=== PATIENT | female | born 1945 | race Caucasian/White ===

== ENCOUNTER → 2019-08-25 | Outpatient (CLI) | payer MEDICARE ==
--- NOTE | 2019-08-29 08:53 | MM ---
Reason for exam: screening (asymptomatic). Last mammogram was performed 9 years and 9 months ago. History: Patient is postmenopausal. Family history of breast cancer in mother. Took hormonal contraceptives for 10 years. Took estrogen for 1 year. Physical Findings: A clinical breast exam by your physician is recommended on an annual basis and results should be correlated with mammographic findings. MG 3D Screening Mammo W/Cad Bilateral CC and MLO view(s) were taken. No prior studies available for comparison. There are scattered fibroglandular densities. There are benign appearing vascular calcifications bilaterally. There is no discrete abnormality. No significant changes when compared with prior studies. ASSESSMENT: Benign, BI-RAD 2 RECOMMENDATION: Routine screening mammogram of both breasts in 1 year.
== END | disposition home or self-care (01) ==
LOC: RADMAMWWP 13:50
PROVIDERS: ATTEND Internal Medicine
DX: Z12.31 Encounter for screening mammogram for malignant neoplasm of breast (principal)
CPT/HCPCS: 77063; 77067

== ENCOUNTER → 2019-08-30 | Outpatient (CLI) | payer MEDICARE ==
--- NOTE | 2019-08-30 14:23 | BD ---
EXAMINATION TYPE: Axial Bone Density DATE OF EXAM: 08/30/2019 COMPARISON: Postmenopausal female. Disorder of bone. Vitamin D deficiency. CLINICAL HISTORY: Height: 63.5 Weight: 244 FRAX RISK QUESTIONS: Alcohol (3 or more units per day): no Family History (Parent hip fracture): no Glucocorticoids (More than 3mos): only for emergency situation & has not used for well over 1 year (Ex: prednisone, prednisolone, methylprednisolone, dexamethasone, and hydrocortisone). History of Fracture in Adulthood: no Secondary Osteoporosis: 1. Type 1 Diabetes: no 2. Hyperthyroidism: no 3. Menopause before 45: no 4. Malnutrition: no 5. Chronic liver disease: no Rheumatoid Arthritis: no Current Tobacco Use: no RISK FACTORS HISTORY OF: Family History of Osteoporosis: not to knowledge of patient Active: somewhat Diet low in dairy products/other sources of calcium: at least one serving a day Postmenopausal woman: yes Take estrogen and/or progesterone medications: not now How long: hormonal contraceptives about 10 years, estrogen about 1 year Lost more than 2 inches in height since high school: yes Frequent falls: no Poor Health: generally good health but sometimes fair health Hyperparathyroidism: no Adrenal Insufficiency: no MEDICATIONS: Prednisone or other steroids: no Thyroid Medications: not now Which medication: unsure How Long: a couple years Osteoporosis Medications: no Additional Medications: metformin Additional History: in 2002 forearm only done on old bone density unit EXAM MEASUREMENTS: Bone mineral densitometry was performed using the [employer] System. Bone mineral density as measured about the Lumbar spine is: ----- L1-L4(G/cm2): 1.583 T Score Values are as follows: ----- L2: 3.7 ----- L3: 5.7 ----- L4: 3.6 ----- L1-L4: 3.4 Bone mineral density not previously done on lumbar spine Bone mineral density about the R hip (g/cm2): 0.808 Bone mineral density about the L hip (g/cm2): 0.728 T Score values are as follows: -----R Neck: -1.7 -----L Neck: -2.2 -----R Total: -1.8 -----L Total: -1.6 Bone mineral density not previously done on hips Bone mineral density about the L Wrist (g/cm2): 0.667 T Score values are as follows: -----Dist. R+U: -0.3 -----Prox. R+U: -0.3 -----Radius total: -0.3 Bone mineral density has: Decreased -16.3% since study of: 09/15/2002 IMPRESSION: Osteopenia (T Score between -2.5 and -1) in both hips. Bone density likely falsely elevated lumbar sp ine due to reactive sclerosis. There is slightly increased risk of fracture and the patient may be considered for treatment. Re-Screen 2-5 years. NOTE: T-SCORE=SD OF THE YOUNG ADULT MEAN.
== END | disposition home or self-care (01) ==
LOC: RADBDWWP 11:10
PROVIDERS: ATTEND Internal Medicine
DX: M85.80 Other specified disorders of bone density and structure, unspecified site (principal); E55.9 Vitamin D deficiency, unspecified
CPT/HCPCS: 77080

== ENCOUNTER 2019-12-08 10:56 | Inpatient (IN) | payer MEDICARE ==
[2019-12-08] MEDS ORDERED: SODIUM CHLORIDE 0.9% 500 ML 500 ML IV STA ×2 (11:24→12:33)
[2019-12-08] MEDS ORDERED: PANTOPRAZOLE 40 MG/10 ML VIAL IVP STA (11:24)
[2019-12-08] MEDS ORDERED: HYDROmorphone 0.5 MG/0.5 ML SYRINGE IVP STA (11:24)
[2019-12-08 12:00] LABS: Basophils % (A) 0 %; Eosinophils # (A) 0.1 k/uL (0-0.7); Eosinophils % (A) 1 %; HCT 48.6 % (34.0-46.0); HGB 15.7 gm/dL (11.4-16.0); Lymphocytes # (A) 0.7 k/uL (1.0-4.8); Lymphocytes % (A) 7 %; MCH 31.2 pg (25.0-35.0); MCHC 32.3 g/dL (31.0-37.0); MCV 96.6 fL (80.0-100.0); Mean Platelet Volume 7.9; Monocytes # (A) 0.5 k/uL (0-1.0); Monocytes % (A) 6 %; Neutrophils # (A) 7.9 k/uL (1.3-7.7); Neutrophils % (A) 85 %; Platelet Count 308 k/uL (150-450); RBC 5.03 m/uL (3.80-5.40); RDW 12.8 % (11.5-15.5); WBC 9.2 k/uL (3.8-10.6)
--- NOTE | 2019-12-08 12:09 | ED ---
General Adult HPI - General Chief complaint: GI Bleed Stated complaint: Abd pain, poss GI bleed, dehydration Time Seen by Provider: 12/08/19 11:04 Source: patient, RN notes reviewed Mode of arrival: ambulatory Limitations: no limitations - History of Present Illness Initial comments: 74-year-old female with a past medical history of atrial fibrillation, NIDDM, DVT, PE, currently on Eliquis presents to the emergency department for a chief complaint of abdominal pain. Patient states she has had left lower quadrant abdominal pain for about a week. Patient states that she has also had loose stools that are dark black. Patient currently taking blood thinners. Patient has a history of GI bleed but they were unable to determine why this was the antonio e. She did have some upper abdominal pain a few nights ago but denies any chest pain associated with this. Patient has had some associated nausea vomiting so has not taken her medications as normal over the past few days.Patient has no other complaints at this time including shortness of breath, chest pain, headache, or visual changes. - Related Data Home Medications Medication Instructions Recorded Confirmed Spironolactone [Aldactone] 100 mg PO BID 12/20/13 12/08/19 Apixaban [Eliquis] 5 mg PO BID 05/08/15 12/08/19 Flecainide Acetate 50 mg PO BID 12/08/19 12/08/19 Verapamil HCl [Verapamil ER] 120 mg PO DAILY 12/08/19 12/08/19 amLODIPine [Norvasc] 5 mg PO DAILY 12/08/19 12/08/19 metFORMIN HCL ER [Glucophage Xr] 500 mg PO DAILY 12/08/19 12/08/19 Allergies Allergy/AdvReac Type Severity Reaction Status Date / Time adhesive Allergy Intermediate Rash/Hives Verified 12/08/19 12:15 cefuroxime axetil Allergy Intermediate Unknown Verified 12/08/19 12:15 [From Ceftin] Sulfa (Sulfonamide Allergy Intermediate Unknown Verified 12/08/19 12:15 Antibiotics) levofloxacin [From Levaquin] AdvReac Severe Rapid Verified 12/08/19 12:15 Heart Rate, dizziness,difficulty walking sulfamethoxazole AdvReac Severe Rapid Verified 12/08/19 12:15 [From Bactrim] Heart Rate trimethoprim [From Bactrim] AdvReac Severe Rapid Verified 12/08/19 12:15 Heart Rate molds AdvReac Unknown Runny nose Uncoded 12/08/19 11:02 & eyes, looses voice Review of Systems ROS Statement: Those systems with pertinent positive or pertinent negative responses have been documented in the HPI. ROS Other: All systems not noted in ROS Statement are negative. Past Medical History Past Medical History: Atrial Fibrillation, Diabetes Mellitus, Deep Vein Thrombosis (DVT), Musculoskeletal Disorder, Osteoarthritis (OA), Pulmonary Embolus (PE), Skin Disorder, Vascular Disorder Additional Past Medical History / Comment(s): PE X2, SWELLING IN LEGS, WOUNDS RIVERA LEGS, DDD WITH BACK PAIN, LOW THYROID A TEENAGER,HX OF KIDNEY STONES. See DR Fonseca H & P History of Any Multi-Drug Resistant Organisms: None Reported Past Surgical History: Hernia Repair, Hysterectomy, Tonsillectomy Additional Past Surgical History / Comment(s): PARTIAL HYSTERECTOMY, RIVERA OOPHERECTOMY.CARDIOVERSION 05-10-15. AND 07-10-15 Past Anesthesia/Blood Transfusion Reactions: No Reported Reaction Past Psychological History: No Psychological Hx Reported Smoking Status: Never smoker Past Alcohol Use History: Rare Past Drug Use History: None Reported - Past Family History Mother Family Medical History: Cancer, Dementia Additional Family Medical History / Comment(s): BREAST & UTERINE CA, of blood clot during sugery at age 89yrs. Father Family Medical History: Myocardial Infarction ([place]) Additional Family Medical History / Comment(s): Father of [place] at age 64 yrs. General Exam Limitations: no limitations General appearance: alert, in no apparent distress Head exam: Present: atraumatic, normocephalic, normal inspection Eye exam: Present: normal appearance, PERRL, EOMI. Absent: scleral icterus, conjunctival injection, periorbital swelling ENT exam: Present: normal exam, mucous membranes moist Neck exam: Present: normal inspection, full ROM. Absent: tenderness, meningismus, lymphadenopathy Respiratory exam: Present: normal lung sounds bilaterally. Absent: respiratory distress, wheezes, rales, rhonchi, stridor Cardiovascular Exam: Present: regular rate, normal rhythm, normal heart sounds. Absent: systolic murmur, diastolic murmur, rubs, gallop, clicks GI/Abdominal exam: Present: soft, tenderness (Patient has tenderness noted to the left lower quadrant. No upper abdominal tenderness. No right lower quadrant tenderness. No guarding or rebound on exam.), normal bowel sounds. Absent: distended, guarding, rebound, rigid Rectal exam: Present: normal rectal tone, hemorrhoids (external) Neurological exam: Present: alert Psychiatric exam: Present: normal affect, normal mood Course Vital Signs 12/08/19 12/08/19 10:57 13:00 Temperature 97.9 F Pulse Rate 103 H 86 Respiratory 18 18 Rate Blood Pressure 103/71 119/70 O2 Sat by Pulse 93 L 98 Oximetry EKG Findings - EKG Comments: EKG Findings:: Sinus tachycardia, ventricular rate 108, MI interval 144, QTC 485 Medical Decision Making - Medical Decision Making Vitals are stable. Patient does have some left lower quadrant tenderness. CBC CMP unremarkable. Urinalysis does show 2+ ketones, likely dehydration patient given a liter of fluids. No significant evidence of infection. Occult blood is negative. CT abdomen and pelvis with contrast shows developing mid to distal acute small bowel obstruction likely from adhesions centered in the anterior left lower quadrant/upper pelvis. She does have a strong history of hysterectomy with bilateral oophorectomy. Patient will be admitted to [facility] with consult to Dr Oconnell who is on-call for surgery. Family does prefer Dr Oconnell. NG tube was placed. It was advanced given chest x-ray. - Lab Data Result diagrams: 12/08/19 11:40 12/08/19 11:40 Lab Results 12/08/19 12/08/19 12/08/19 Range/Units 11:40 11:40 11:40 WBC 9.2 (3.8-10.6) k/uL RBC 5.03 (3.80-5.40) m/uL Hgb 15.7 (11.4-16.0) gm/dL Hct 48.6 H (34.0-46.0) % MCV 96.6 (80.0-100.0) fL MCH 31.2 (25.0-35.0) pg MCHC 32.3 (31.0-37.0) g/dL RDW 12.8 (11.5-15.5) % Plt Count 308 (150-450) k/uL Neutrophils % 85 % Lymphocytes % 7 % Monocytes % 6 % Eosinophils % 1 % Basophils % 0 % Neutrophils # 7.9 H (1.3-7.7) k/uL Lymphocytes # 0.7 L (1.0-4.8) k/uL Monocytes # 0.5 (0-1.0) k/uL Eosinophils # 0.1 (0-0.7) k/uL Basophils # 0.0 (0-0.2) k/uL PT (9.0-12.0) sec INR (<1.2) APTT (22.0-30.0) sec Sodium 136 L (137-145) mmol/L Potassium 4.4 (3.5-5.1) mmol/L Chloride 104 (98-107) mmol/L Carbon Dioxide 19 L (22-30) mmol/L Anion Gap 13 mmol/L BUN 17 (7-17) mg/dL Creatinine 1.14 H (0.52-1.04) mg/dL Est GFR (CKD-EPI)AfAm 55 (>60 ml/min/1.73 sqM) Est GFR (CKD-EPI)NonAf 48 (>60 ml/min/1.73 sqM) Glucose 101 H (74-99) mg/dL Plasma Lactic Acid [place] 1.2 (0.7-2.0) mmol/L Calcium 9.2 (8.4-10.2) mg/dL Magnesium 1.6 (1.6-2.3) mg/dL Total Bilirubin 0.7 (0.2-1.3) mg/dL AST 17 (14-36) U/L ALT 10 (4-34) U/L Alkaline Phosphatase 51 (38-126) U/L Total Protein 6.5 (6.3-8.2) g/dL Albumin 3.3 L (3.5-5.0) g/dL Urine Color Urine Appearance (Clear) Urine pH (5.0-8.0) Ur Specific [place] (1.001-1.035) Urine Protein (Negative) Urine Glucose (UA) (Negative) Urine Ketones (Negative) Urine Blood (Negative) Urine Nitrite (Negative) Urine Bilirubin (Negative) Urine Urobilinogen (<2.0) mg/dL Ur Leukocyte Esterase (Negative) Urine WBC (0-5) /hpf Ur Squamous Epith Cells (0-4) /hpf Urine Bacteria (None) /hpf Hyaline Casts (0-2) /lpf Urine Mucus (None) /hpf Stool Occult Blood (Negative) Coronavirus (PCR) (Not Detectd) Blood Type Blood Type Recheck Bld Type Recheck Status Antibody Screen Spec Expiration Date 12/08/19 12/08/19 12/08/19 Range/Units 11:40 12:09 12:09 WBC (3.8-10.6) k/uL RBC (3.80-5.40) m/uL Hgb (11.4-16.0) gm/dL Hct (34.0-46.0) % MCV (80.0-100.0) fL MCH (25.0-35.0) pg MCHC (31.0-37.0) g/dL RDW (11.5-15.5) % Plt Count (150-450) k/uL Neutrophils % % Lymphocytes % % Monocytes % % Eosinophils % % Basophils % % Neutrophils # (1.3-7.7) k/uL Lymphocytes # (1.0-4.8) k/uL Monocytes # (0-1.0) k/uL Eosinophils # (0-0.7) k/uL Basophils # (0-0.2) k/uL PT 11.2 (9.0-12.0) sec INR 1.1 (<1.2) APTT 25.0 (22.0-30.0) sec Sodium (137-145) mmol/L Potassium (3.5-5.1) mmol/L Chloride (98-107) mmol/L Carbon Dioxide (22-30) mmol/L Anion Gap mmol/L BUN (7-17) mg/dL Creatinine (0.52-1.04) mg/dL Est GFR (CKD-EPI)AfAm (>60 ml/min/1.73 sqM) Est GFR (CKD-EPI)NonAf (>60 ml/min/1.73 sqM) Glucose (74-99) mg/dL Plasma Lactic Acid [place] (0.7-2.0) mmol/L Calcium (8.4-10.2) mg/dL Magnesium (1.6-2.3) mg/dL Total Bilirubin (0.2-1.3) mg/dL AST (14-36) U/L ALT (4-34) U/L Alkaline Phosphatase (38-126) U/L Total Protein (6.3-8.2) g/dL Albumin (3.5-5.0) g/dL Urine Color Urine Appearance (Clear) Urine pH (5.0-8.0) Ur Specific [place] (1.001-1.035) Urine Protein (Negative) Urine Glucose (UA) (Negative) Urine Ketones (Negative) Urine Blood (Negative) Urine Nitrite (Negative) Urine Bilirubin (Negative) Urine Urobilinogen (<2.0) mg/dL Ur Leukocyte Esterase (Negative) Urine WBC (0-5) /hpf Ur Squamous Epith Cells (0-4) /hpf Urine Bacteria (None) /hpf Hyaline Casts (0-2) /lpf Urine Mucus (None) /hpf Stool Occult Blood Negative (Negative) Coronavirus (PCR) (Not Detectd) Blood Type A Positive Blood Type Recheck A Pos Bld Type Recheck Status No Antibody Screen NEGATIVE Spec Expiration Date 12/11/2019 - 233912/08/19 12/08/19 Range/Units 13:00 13:15 WBC (3.8-10.6) k/uL RBC (3.80-5.40) m/uL Hgb (11.4-16.0) gm/dL Hct (34.0-46.0) % MCV (80.0-100.0) fL MCH (25.0-35.0) pg MCHC (31.0-37.0) g/dL RDW (11.5-15.5) % Plt Count (150-450) k/uL Neutrophils % % Lymphocytes % % Monocytes % % Eosinophils % % Basophils % % Neutrophils # (1.3-7.7) k/uL Lymphocytes # (1.0-4.8) k/uL Monocytes # (0-1.0) k/uL Eosinophils # (0-0.7) k/uL Basophils # (0-0.2) k/uL PT (9.0-12.0) sec INR (<1.2) APTT (22.0-30.0) sec Sodium (137-145) mmol/L Potassium (3.5-5.1) mmol/L Chloride (98-107) mmol/L Carbon Dioxide (22-30) mmol/L Anion Gap mmol/L BUN (7-17) mg/dL Creatinine (0.52-1.04) mg/dL Est GFR (CKD-EPI)AfAm (>60 ml/min/1.73 sqM) Est GFR (CKD-EPI)NonAf (>60 ml/min/1.73 sqM) Glucose (74-99) mg/dL Plasma Lactic Acid [place] (0.7-2.0) mmol/L Calcium (8.4-10.2) mg/dL Magnesium (1.6-2.3) mg/dL Total Bilirubin (0.2-1.3) mg/dL AST (14-36) U/L ALT (4-34) U/L Alkaline Phosphatase (38-126) U/L Total Protein (6.3-8.2) g/dL Albumin (3.5-5.0) g/dL Urine Color Yellow Urine Appearance Clear (Clear) Urine pH 5.5 (5.0-8.0) Ur Specific [place] 1.038 H (1.001-1.035) Urine Protein Trace H (Negative) Urine Glucose (UA) Negative (Negative) Urine Ketones 2+ H (Negative) Urine Blood Negative (Negative) Urine Nitrite Negative (Negative) Urine Bilirubin 1+ H (Negative) Urine Urobilinogen 3.0 (<2.0) mg/dL Ur Leukocyte Esterase Large H (Negative) Urine WBC 5 (0-5) /hpf Ur Squamous Epith Cells <1 (0-4) /hpf Urine Bacteria Rare H (None) /hpf Hyaline Casts 9 H (0-2) /lpf Urine Mucus Occasional H (None) /hpf Stool Occult Blood (Negative) Coronavirus (PCR) Not Detected (Not Detectd) Blood Type Blood Type Recheck Bld Type Recheck Status Antibody Screen Spec Expiration Date Disposition Clinical Impression: SBO (small bowel obstruction) Disposition: ADMITTED IP TO THIS [facility] Condition: Fair Is patient prescribed a controlled substance at d/c from ED?: No Time of Disposition: 13:34
[2019-12-08 12:15] LABS: Albumin 3.3 g/dL (3.5-5.0); Calcium 9.2 mg/dL (8.4-10.2); Magnesium 1.6 mg/dL (1.6-2.3); Potassium 4.4 mmol/L (3.5-5.1); Total Bilirubin 0.7 mg/dL (0.2-1.3); Total Protein 6.5 g/dL (6.3-8.2)
[2019-12-08 12:21] LABS: INR 1.1 (<1.2); Prothrombin Time 11.2 sec (9.0-12.0)
--- NOTE | 2019-12-08 13:02 | CT ---
EXAMINATION TYPE: CT abdomen pelvis w con DATE OF EXAM: 12/08/2019 HISTORY: LLQ pain, rectal bleed CT DLP: 1700.3mGycm Automated Exposure Control for Dose Reduction was Utilized. CONTRAST: CT scan of the abdomen and pelvis is performed without oral but with IV Contrast, patient injected wi th 80 mL of Isovue 300. COMPARISON: CT abdomen and pelvis December 24, 2015 and older CTs FINDINGS: LUNG BASES: Tiny pericardial effusion on current study. Mild cardiomegaly. LIVER/GB: No significant abnormality is appreciated. PANCREAS: No significant abnormality is seen. SPLEEN: No significant abnormality is seen. ADRENALS: No significant abnormality is seen. KIDNEYS: Some cortical thinning in both kidneys. Symmetric cortical medullary uptake and excretion wi thout hydronephrosis seen bilaterally. Small simple appearing thin-walled cysts scattered throughout the central portion left kidney. BOWEL: Suboptimal evaluation of bowel without enteric contrast. No suspicious dilatation of stomach o r duodenal sweep. Some prominent fluid filled small bowel loops in the left mid abdomen and central p abelardo with air-fluid levels measuring up to 4.3 cm in diameter coronal image 48. Scattered diverticul a throughout nondistended colon. Nondistended terminal ileum coronal image 48. Nondistended distal il eal loops in the right abdomen. Mild/moderate mesenteric edema. Suspect surgical adhesion left lower quadrant anteriorly near axial image 57. There is loss of fat plane with areas of prominent and nondi lated bowel loops. UTERUS/ADNEXA: Uterus is surgically absent or markedly atrophic. LYMPH NODES: No greater than 1cm abdominal or pelvic lymph nodes are appreciated. OSSEOUS STRUCTURES: Dextroconvex scoliosis centered upper lumbar spine. Moderate to severe multilevel spurring and disc space narrowing in the visualized thoracic and upper lumbar spine. Moderate narrow ing in both hip joints right greater than left with additional moderate right-sided spurring. OTHER: Persistent surgical changes anterior abdominal wall with thin-walled fluid collection centered left lower quadrant fairly unchanged in size from 2014 CT with surrounding coils presumed postsurgic al seroma measuring roughly 12 x 7 cm axial image 56. IMPRESSION: There is developing mid to distal acute small bowel obstruction likely from adhesions will tered in the anterior left lower quadrant/upper pelvis.
[2019-12-08 13:14] LABS: Appearance,Urine Clear (Clear); Bacteria,Urine Rare /hpf; Bilirubin,Urine 1+ (Negative); Blood,Urine Negative (Negative); Color,Urine Yellow; Glucose,Urine (UA) Negative (Negative); Hyaline Casts,Urine 9 /lpf (0-2); Ketones,Urine 2+ (Negative); Leukocyte Esterase,Urine Large (Negative); Mucus,Urine Occasional /hpf; Nitrite,Urine Negative (Negative); PH, Urine 5.5 (5.0-8.0); Protein,Urine Trace (Negative); Specific Gravity,Urine 1.038 (1.001-1.035); Squamous Epithelial Cell,Urine <1 /hpf (0-4); WBC,Urine 5 /hpf (0-5)
[2019-12-08] MEDS ORDERED: ONDANSETRON 4 MG/2 ML VIAL IVP PRN (13:27)
[2019-12-08] MEDS ORDERED: HYDROmorphone 0.5 MG/0.5 ML SYRINGE IVP PRN (13:27)
[2019-12-08] MEDS ORDERED: NALOXONE 0.4 MG/ML 1 ML VIAL IV PRN ×2 (13:27→14:41)
--- NOTE | 2019-12-08 14:33 | XR ---
EXAMINATION TYPE: XR chest 1V confirm line [facility] DATE OF EXAM: 12/08/2019 CLINICAL HISTORY: NG tube placement. TECHNIQUE: Single AP portable upright view of the chest is obtained. COMPARISON: Chest x-ray from February 12, 2011 FINDINGS: New nasogastric tube, tip cannot be confirmed below diaphragm. Lungs grossly clear on curr ent study. Cardiac silhouette size is upper limits of normal. Degenerative change bilateral glenohume ral joints. IMPRESSION: New nasogastric tube is felt terminating just above diaphragm. Advise advancing.
[2019-12-08] MEDS ORDERED: MORPHINE SULFATE 4 MG/ML SYRINGE IV PRN (14:41)
[2019-12-08] MEDS ORDERED: METOPROLOL TARTRATE 5 MG/5 ML VIAL IVP PRN (14:43)
--- NOTE | 2019-12-08 14:55 | P.HPIM ---
History of Present Illness H&P Date: 12/08/19 Chief Complaint: Abdominal pain 74-year-old female with a past medical history of atrial fibrillation on anticoagulation therapy, NIDDM, DVT, PE, currently on Eliquis presents to the emergency department for a chief complaint of abdominal pain. Pain is located in the left lower quadrant, started on Thursday. It is associated with diarrhea, nausea and vomiting. No hematemesis or hematochezia. Patient states that she had a fever that lasted for about 5 hours. No shortness of breath, chest pain, no urinary symptoms. Evaluation in the emergency department revealed tachycardia with heart rate in the 110s. Labs showed low bicarb of 19, otherwise negative. Blood pressure was stable. Computed tomography scan of the abdomen showed mid to distal small bowel obstruction likely secondary to adhesions. Review of Systems Complete review of system performed, pertinent positives per HPI, otherwise negative. Past Medical History Past Medical History: Atrial Fibrillation, Diabetes Mellitus, Deep Vein Thr ombosis (DVT), Musculoskeletal Disorder, Osteoarthritis (OA), Pulmonary Embolus (PE), Skin Disorder, Vascular Disorder Additional Past Medical History / Comment(s): PE X2, SWELLING IN LEGS, WOUNDS RIVERA LEGS, DDD WITH BACK PAIN, LOW THYROID A TEENAGER,HX OF KIDNEY STONES. See DR Fonseca H & P History of Any Multi-Drug Resistant Organisms: None Reported Past Surgical History: Hernia Repair, Hysterectomy, Tonsillectomy Additional Past Surgical History / Comment(s): PARTIAL HYSTERECTOMY, RIVERA O OPHERECTOMY.CARDIOVERSION 05-10-15. AND 07-10-15 Past Anesthesia/Blood Transfusion Reactions: No Reported Reaction Past Psychological History: No Psychological Hx Reported Smoking Status: Never smoker Past Alcohol Use History: Rare Past Drug Use History: None Reported - Past Family History Mother Family Medical History: Cancer, Dementia Additional Family Medical History / Comment(s): BREAST & UTERINE CA, of blood clot during sugery at age 89yrs. Father Family Medical History: Myocardial Infarction ([place]) Additional Family Medical History / Comment(s): Father of [place] at age 64 yrs. Medications and Allergies Home Medications Medication Instructions Recorded Confirmed Type Spironolactone [Aldactone] 100 mg PO BID 12/20/13 12/08/19 History Apixaban [Eliquis] 5 mg PO BID 05/08/15 12/08/19 History Flecainide Acetate 50 mg PO BID 12/08/19 12/08/19 History Verapamil HCl [Verapamil ER] 120 mg PO DAILY 12/08/19 12/08/19 History amLODIPine [Norvasc] 5 mg PO DAILY 12/08/19 12/08/19 History metFORMIN HCL ER [Glucophage Xr] 500 mg PO DAILY 12/08/19 12/08/19 History Allergies Allergy/AdvReac Type Severity Reaction Status Date / Time adhesive Allergy Intermediate Rash/Hives Verified 12/08/19 12:15 cefuroxime axetil Allergy Intermediate Unknown Verified 12/08/19 12:15 [From Ceftin] Sulfa (Sulfonamide Allergy Intermediate Unknown Verified 12/08/19 12:15 Antibiotics) levofloxacin [From Levaquin] AdvReac Severe Rapid Verified 12/08/19 12:15 Heart Rate, dizziness,difficulty walking sulfamethoxazole AdvReac Severe Rapid Verified 12/08/19 12:15 [From Bactrim] Heart Rate trimethoprim [From Bactrim] AdvReac Severe Rapid Verified 12/08/19 12:15 Heart Rate molds AdvReac Unknown Runny nose Uncoded 12/08/19 11:02 & eyes, looses voice Physical Exam Vitals: Vital Signs Temp Pulse Resp BP Pulse Ox 12/08/19 13:00 86 18 119/70 98 12/08/19 10:57 97.9 F 103 H 18 103/71 93 L Intake and Output 12/07/19 12/08/19 12/08/19 22:59 06:59 14:59 Other: Weight 90.718 kg Constitutional: No acute distress, conversant, pleasant Eyes:Anicteric sclerae, moist conjunctiva, no lid-lag, PERRLA, ENMT: Oropharynx clear, no erythema, exudates Neck: Supple, FROM, no masses, or JVD, No carotid bruits, No thyromegaly Lungs: Clear to auscultation, Clear to percussion, Normal respiratory effort, no accessory muscle use Cardiovascular: Tachycardic, regular, No murmurs, gallops, or rubs, No peripheral edema Abdominal: Soft, left lower quadrant tenderness, no guarding, rebound or rigidity, Normoactive bowel sounds, No hepatomegaly, No splenomegaly, No palpable mass Skin: Chronic skin changes in the lower extremities. Otherwise no rash, lesions, No ulcers Extremities: No digital cyanosis, No clubbing, Pedal pulses intact and symmetrical, Radial pulses intact and symmetrical, No calf tenderness Psychiatric: Alert and oriented to person, place and time, appropriate affect, intact judgement Neuro: Muscles Strength 5/5 in all 4 extremities, Sensation to light touch grossly present throughout, Cranial nerves II-XII grossly intact, no focal sensory deficits Results CBC & Chem 7: 12/08/19 11:40 12/08/19 11:40 Labs: Abnormal Lab Results - Last 24 Hours (Table) 12/08/19 12/08/19 12/08/19 Range/Units 11:40 11:40 13:00 Hct 48.6 H (34.0-46.0) % Neutrophils # 7.9 H (1.3-7.7) k/uL Lymphocytes # 0.7 L (1.0-4.8) k/uL Sodium 136 L (137-145) mmol/L Carbon Dioxide 19 L (22-30) mmol/L Creatinine 1.14 H (0.52-1.04) mg/dL Glucose 101 H (74-99) mg/dL Albumin 3.3 L (3.5-5.0) g/dL Ur Specific [place] 1.038 H (1.001-1.035) Urine Protein Trace H (Negative) Urine Ketones 2+ H (Negative) Urine Bilirubin 1+ H (Negative) Ur Leukocyte Esterase Large H (Negative) Urine Bacteria Rare H (None) /hpf Hyaline Casts 9 H (0-2) /lpf Urine Mucus Occasional H (None) /hpf Assessment and Plan Plan: Acute small bowel obstruction Consult surgery IV fluids NG tube placed Nothing by mouth Hold by mouth meds Atrial fibrillation with RVR Metoprolol IV when necessary Need to hold anticoagulation at this point, there was some blood coming out of the NG tube likely related to trauma If this stabilizes tomorrow consider starting patient on heparin Type 2 diabetes Hold metformin Sliding scale insulin Deep Vein Thrombosis (DVT) and PE history Restart heparin tomorrow as above Patient will be admitted to the hospital, more than two midnights, as inpatient.
[2019-12-08] MEDS: SODIUM CHLORIDE 0.9% 1,000 ML IV SCH (15:24)
[2019-12-08] MEDS: INSULIN ASPART (NovoLOG) 100 UNIT/ML VIAL SQ SCH ×2 (17:13→21:34)
[2019-12-08] MEDS ORDERED: BENZOCAINE SPRAY 1 CAN MUCOUS MEM PRN (17:45)
[2019-12-09] MEDS: SODIUM CHLORIDE 0.9% 1,000 ML IV SCH ×2 (03:30→20:51)
[2019-12-09] MEDS ORDERED: FLECAINIDE 50 MG TAB PO STA (05:13)
[2019-12-09] MEDS ORDERED: FLECAINIDE 50 MG TAB PO ONE (05:30)
[2019-12-09 07:53] LABS: Glucose,Whole Blood 75 mg/dL (75-99)
[2019-12-09 07:53] LABS: Glucose,Whole Blood 73 mg/dL (75-99)
[2019-12-09 07:54] LABS: Glucose,Whole Blood 75 mg/dL (75-99)
[2019-12-09 07:54] LABS: Glucose,Whole Blood 82 mg/dL (75-99)
[2019-12-09 08:29] LABS: Basophils % (A) 0 %; Eosinophils # (A) 0.2 k/uL (0-0.7); Eosinophils % (A) 2 %; HCT 47.2 % (34.0-46.0); HGB 15.3 gm/dL (11.4-16.0); Hypochromasia Slight; Lymphocytes # (A) 1.1 k/uL (1.0-4.8); Lymphocytes % (A) 10 %; MCH 31.6 pg (25.0-35.0); MCHC 32.3 g/dL (31.0-37.0); MCV 97.6 fL (80.0-100.0); Mean Platelet Volume 7.8; Monocytes # (A) 0.6 k/uL (0-1.0); Monocytes % (A) 5 %; Neutrophils # (A) 8.9 k/uL (1.3-7.7); Neutrophils % (A) 82 %; Platelet Count 361 k/uL (150-450); RBC 4.84 m/uL (3.80-5.40); RDW 12.8 % (11.5-15.5); WBC 10.8 k/uL (3.8-10.6)
[2019-12-09 08:32] LABS: Albumin 3.5 g/dL (3.5-5.0); Calcium 9.3 mg/dL (8.4-10.2); Magnesium 1.5 mg/dL (1.6-2.3); Phosphorus 3.4 mg/dL (2.5-4.5); Potassium 3.9 mmol/L (3.5-5.1); Total Bilirubin 0.6 mg/dL (0.2-1.3); Total Protein 6.8 g/dL (6.3-8.2)
[2019-12-09] MEDS: INSULIN ASPART (NovoLOG) 100 UNIT/ML VIAL SQ SCH ×4 (08:43→20:47)
--- NOTE | 2019-12-09 09:20 | P.GSCN ---
<Angela Vo - Last Filed: 12/09/19 09:13> History of Present Illness Consult date: 12/09/19 Reason for Consult: SBO Requesting physician: Afshin Jane History of present illness: CHIEF COMPLAINT: SBO HISTORY OF PRESENT ILLNESS: 74-year-old female who apparently presented to emergency room with chief complaint of abdominal pain. Patient examined this morning at the bedside. She appears slightly confused this morning, but states it is because she just woke up. She is unable to tell me the reason she came to the emergency room. She states "I wasn't having any abdominal pain. My just wanted me to come and get checked out". Patient was found to have a small bowel obstruction. NG tube was placed in the emergency room. The patient pulled out her NG tube this morning and has been refusing to have it reinserted. She denies passing flatus. Nursing reports 2 large bowel movements this morning. Patient denies abdominal pain. She denies nausea. PAST MEDICAL HISTORY: See list. PAST SURGICAL HISTORY: See list. SOCIAL HISTORY: No illicit drug use. REVIEW OF SYSTEMS: CONSTITUTIONAL: Denies fever or chills. HEENT: Denies blurred vision, vision changes, or eye pain. Denies hemoptysis CARDIOVASCULAR: Denies chest pain or pressure. RESPIRATORY: No shortness of breath. GASTROINTESTINAL: Refer to HPI for pertinent findings HEMATOLOGIC: Denies bleeding disorders. GENITOURINARY: Denies any blood in urine. SKIN: Denies pruitis. Denies rash. PHYSICAL EXAM: VITAL SIGNS: Reviewed. GENERAL: Well-developed in no acute distress. HEENT: No sclera icterus. Extraocular movements grossly intact. Moist buccal mucosa. Head is atraumatic, normocephalic. ABDOMEN: Soft. Mid abdomen appears slightly distended, but patient reports this her baseline. Nontender with palpation. NEUROLOGIC: Awake and alert. Appears slightly confused this morning LABORATORY DATA: WBC 10.8. Hemoglobin 15.3. Platelet count 361. IMAGING: CT abdomen and pelvis: Developing mid to distal acute small bowel obstruction likely from adhesions centered in the anterior left lower quadrant/upper pelvis. ASSESSMENT: 1. Abdominal pain 2. Small bowel obstruction PLAN: -Patient refusing to have NG replaced -Hold Eliquis -NPO -Repeat abdominal XR -Patient to be re-evaluated by Dr. Oconnell today. Further recommendations pending Nurse practitioner note has been reviewed by physician. Signing provider agrees with the documented findings, assessment, and plan of care. Past Medical History Past Medical History: Atrial Fibrillation, Diabetes Mellitus, Deep Vein Thrombosis (DVT), Musculoskeletal Disorder, Osteoarthritis (OA), Pulmonary Embolus (PE), Skin Disorder, Vascular Disorder Additional Past Medical History / Comment(s): PE X2, SWELLING IN LEGS, WOUNDS RIVERA LEGS, DDD WITH BACK PAIN, LOW THYROID A TEENAGER,HX OF KIDNEY STONES. See DR Fonseca [facility] History of Any Multi-Drug Resistant Organisms: None Reported Past Surgical History: Hernia Repair, Hysterectomy, Tonsillectomy Additional Past Surgical History / Comment(s): PARTIAL HYSTERECTOMY, RIVERA OOPHERECTOMY.CARDIOVERSION 05-10-15. AND 07-10-15 Past Anesthesia/Blood Transfusion Reactions: No Reported Reaction Past Psychological History: No Psychological Hx Reported Smoking Status: Never smoker Past Alcohol Use History: Rare Past Drug Use History: None Reported - Past Family History Mother Family Medical History: Cancer, Dementia Additional Family Medical History / Comment(s): BREAST & UTERINE CA, of blood clot during sugery at age 89yrs. Father Family Medical History: Myocardial Infarction (ME) Additional Family Medical History / Comment(s): Father of ME at age 64 yrs. Medications and Allergies Home Medications Medication Instructions Recorded Confirmed Type Spironolactone [Aldactone] 100 mg PO BID 12/20/13 12/08/19 History Apixaban [Eliquis] 5 mg PO BID 05/08/15 12/08/19 History Flecainide Acetate 50 mg PO BID 12/08/19 12/08/19 History Verapamil HCl [Verapamil ER] 120 mg PO DAILY 12/08/19 12/08/19 History amLODIPine [Norvasc] 5 mg PO DAILY 12/08/19 12/08/19 History metFORMIN HCL ER [Glucophage Xr] 500 mg PO DAILY 12/08/19 12/08/19 History Allergies Allergy/AdvReac Type Severity Reaction Status Date / Time adhesive Allergy Intermediate Rash/Hives Verified 12/08/19 12:15 cefuroxime axetil Allergy Intermediate Unknown Verified 12/08/19 12:15 [From Ceftin] Sulfa (Sulfonamide Allergy Intermediate Unknown Verified 12/08/19 12:15 Antibiotics) levofloxacin [From Levaquin] AdvReac Severe Rapid Verified 12/08/19 12:15 Heart Rate, dizziness,difficulty walking sulfamethoxazole AdvReac Severe Rapid Verified 12/08/19 12:15 [From Bactrim] Heart Rate trimethoprim [From Bactrim] AdvReac Severe Rapid Verified 12/08/19 12:15 Heart Rate molds AdvReac Unknown Runny nose Uncoded 12/08/19 11:02 & eyes, looses voice Surgical - Exam Vital Signs Temp Pulse Resp BP Pulse Ox 97.9 F 103 H 18 103/71 93 L 12/08/19 10:57 12/08/19 10:57 12/08/19 10:57 12/08/19 10:57 12/08/19 10:57 Results - Labs 12/09/19 07:46 12/09/19 07:46 Abnormal Lab Results - Last 24 Hours (Table) 12/08/19 12/08/19 12/08/19 Range/Units 11:40 11:40 13:00 WBC (3.8-10.6) k/uL Hct 48.6 H (34.0-46.0) % Neutrophils # 7.9 H (1.3-7.7) k/uL Lymphocytes # 0.7 L (1.0-4.8) k/uL Sodium 136 L (137-145) mmol/L Carbon Dioxide 19 L (22-30) mmol/L Creatinine 1.14 H (0.52-1.04) mg/dL Glucose 101 H (74-99) mg/dL POC Glucose (mg/dL) (75-99) mg/dL Magnesium (1.6-2.3) mg/dL Albumin 3.3 L (3.5-5.0) g/dL Ur Specific [place] 1.038 H (1.001-1.035) Urine Protein Trace H (Negative) Urine Ketones 2+ H (Negative) Urine Bilirubin 1+ H (Negative) Ur Leukocyte Esterase Large H (Negative) Urine Bacteria Rare H (None) /hpf Hyaline Casts 9 H (0-2) /lpf Urine Mucus Occasional H (None) /hpf 12/08/19 12/09/19 12/09/19 Range/Units 16:33 07:46 07:46 WBC 10.8 H (3.8-10.6) k/uL Hct 47.2 H (34.0-46.0) % Neutrophils # 8.9 H (1.3-7.7) k/uL Lymphocytes # (1.0-4.8) k/uL Sodium (137-145) mmol/L Carbon Dioxide 19 L (22-30) mmol/L Creatinine 1.10 H (0.52-1.04) mg/dL Glucose (74-99) mg/dL POC Glucose (mg/dL) 73 L (75-99) mg/dL Magnesium 1.5 L (1.6-2.3) mg/dL Albumin (3.5-5.0) g/dL Ur Specific [place] (1.001-1.035) Urine Protein (Negative) Urine Ketones (Negative) Urine Bilirubin (Negative) Ur Leukocyte Esterase (Negative) Urine Bacteria (None) /hpf Hyaline Casts (0-2) /lpf Urine Mucus (None) /hpf Diabetes panel 12/08/19 12/09/19 Range/Units 11:40 07:46 Sodium 136 L 137 (137-145) mmol/L Potassium 4.4 3.9 (3.5-5.1) mmol/L Chloride 104 102 (98-107) mmol/L Carbon Dioxide 19 L 19 L (22-30) mmol/L BUN 17 17 (7-17) mg/dL Creatinine 1.14 H 1.10 H (0.52-1.04) mg/dL Glucose 101 H 77 (74-99) mg/dL Calcium 9.2 9.3 (8.4-10.2) mg/dL AST 17 17 (14-36) U/L ALT 10 10 (4-34) U/L Alkaline Phosphatase 51 49 (38-126) U/L Total Protein 6.5 6.8 (6.3-8.2) g/dL Albumin 3.3 L 3.5 (3.5-5.0) g/dL Calcium panel 12/08/19 12/09/19 Range/Units 11:40 07:46 Calcium 9.2 9.3 (8.4-10.2) mg/dL Phosphorus 3.4 (2.5-4.5) mg/dL Albumin 3.3 L 3.5 (3.5-5.0) g/dL Pituitary panel 12/08/19 12/09/19 Range/Units 11:40 07:46 Sodium 136 L 137 (137-145) mmol/L Potassium 4.4 3.9 (3.5-5.1) mmol/L Chloride 104 102 (98-107) mmol/L Carbon Dioxide 19 L 19 L (22-30) mmol/L BUN 17 17 (7-17) mg/dL Creatinine 1.14 H 1.10 H (0.52-1.04) mg/dL Glucose 101 H 77 (74-99) mg/dL Calcium 9.2 9.3 (8.4-10.2) mg/dL Adrenal panel 12/08/19 12/09/19 Range/Units 11:40 07:46 Sodium 136 L 137 (137-145) mmol/L Potassium 4.4 3.9 (3.5-5.1) mmol/L Chloride 104 102 (98-107) mmol/L Carbon Dioxide 19 L 19 L (22-30) mmol/L BUN 17 17 (7-17) mg/dL Creatinine 1.14 H 1.10 H (0.52-1.04) mg/dL Glucose 101 H 77 (74-99) mg/dL Calcium 9.2 9.3 (8.4-10.2) mg/dL Total Bilirubin 0.7 0.6 (0.2-1.3) mg/dL AST 17 17 (14-36) U/L ALT 10 10 (4-34) U/L Alkaline Phosphatase 51 49 (38-126) U/L Total Protein 6.5 6.8 (6.3-8.2) g/dL Albumin 3.3 L 3.5 (3.5-5.0) g/dL <Mike Oconnell - Last Filed: 12/09/19 10:56> History of Present Illness History of present illness: As above. Patient admitted with small bowel obstruction. CAT scan reviewed showing some mild inflammation in the mesentery and the degree of obstruction appears to be moderate to high. Despite that the patient did have a large bowel movement today and is denying any pain or nausea. She pulled her nasal gastric tube out. Slightly confused. Abdominal examination reveals fullness along the incision consistent with a seroma seen on CAT scan. The seroma appears to be related to a previous incisional hernia repair by Dr. Headley she believes. The seroma does not appear to be a new finding. Patient's abdominal x-ray plain films today show a nonobstructive bowel gas pattern. Will begin clear liquids. We'll monitor closely. Surgical - Exam Vital Signs Temp Pulse Resp BP Pulse Ox 97.9 F 103 H 18 103/71 93 L 12/08/19 10:57 12/08/19 10:57 12/08/19 10:57 12/08/19 10:57 12/08/19 10:57 Results - Labs 12/09/19 07:46 12/09/19 07:46 Abnormal Lab Results - Last 24 Hours (Table) 12/08/19 12/08/19 12/08/19 Range/Units 11:40 11:40 13:00 WBC (3.8-10.6) k/uL Hct 48.6 H (34.0-46.0) % Neutrophils # 7.9 H (1.3-7.7) k/uL Lymphocytes # 0.7 L (1.0-4.8) k/uL Sodium 136 L (137-145) mmol/L Carbon Dioxide 19 L (22-30) mmol/L Creatinine 1.14 H (0.52-1.04) mg/dL Glucose 101 H (74-99) mg/dL POC Glucose (mg/dL) (75-99) mg/dL Magnesium (1.6-2.3) mg/dL Albumin 3.3 L (3.5-5.0) g/dL Ur Specific [place] 1.038 H (1.001-1.035) Urine Protein Trace H (Negative) Urine Ketones 2+ H (Negative) Urine Bilirubin 1+ H (Negative) Ur Leukocyte Esterase Large H (Negative) Urine Bacteria Rare H (None) /hpf Hyaline Casts 9 H (0-2) /lpf Urine Mucus Occasional H (None) /hpf 12/08/19 12/09/19 12/09/19 Range/Units 16:33 07:46 07:46 WBC 10.8 H (3.8-10.6) k/uL Hct 47.2 H (34.0-46.0) % Neutrophils # 8.9 H (1.3-7.7) k/uL Lymphocytes # (1.0-4.8) k/uL Sodium (137-145) mmol/L Carbon Dioxide 19 L (22-30) mmol/L Creatinine 1.10 H (0.52-1.04) mg/dL Glucose (74-99) mg/dL POC Glucose (mg/dL) 73 L (75-99) mg/dL Magnesium 1.5 L (1.6-2.3) mg/dL Albumin (3.5-5.0) g/dL Ur Specific [place] (1.001-1.035) Urine Protein (Negative) Urine Ketones (Negative) Urine Bilirubin (Negative) Ur Leukocyte Esterase (Negative) Urine Bacteria (None) /hpf Hyaline Casts (0-2) /lpf Urine Mucus (None) /hpf Diabetes panel 12/08/19 12/09/19 Range/Units 11:40 07:46 Sodium 136 L 137 (137-145) mmol/L Potassium 4.4 3.9 (3.5-5.1) mmol/L Chloride 104 102 (98-107) mmol/L Carbon Dioxide 19 L 19 L (22-30) mmol/L BUN 17 17 (7-17) mg/dL Creatinine 1.14 H 1.10 H (0.52-1.04) mg/dL Glucose 101 H 77 (74-99) mg/dL Calcium 9.2 9.3 (8.4-10.2) mg/dL AST 17 17 (14-36) U/L ALT 10 10 (4-34) U/L Alkaline Phosphatase 51 49 (38-126) U/L Total Protein 6.5 6.8 (6.3-8.2) g/dL Albumin 3.3 L 3.5 (3.5-5.0) g/dL Calcium panel 12/08/19 12/09/19 Range/Units 11:40 07:46 Calcium 9.2 9.3 (8.4-10.2) mg/dL Phosphorus 3.4 (2.5-4.5) mg/dL Albumin 3.3 L 3.5 (3.5-5.0) g/dL Pituitary panel 12/08/19 12/09/19 Range/Units 11:40 07:46 Sodium 136 L 137 (137-145) mmol/L Potassium 4.4 3.9 (3.5-5.1) mmol/L Chloride 104 102 (98-107) mmol/L Carbon Dioxide 19 L 19 L (22-30) mmol/L BUN 17 17 (7-17) mg/dL Creatinine 1.14 H 1.10 H (0.52-1.04) mg/dL Glucose 101 H 77 (74-99) mg/dL Calcium 9.2 9.3 (8.4-10.2) mg/dL Adrenal panel 12/08/19 12/09/19 Range/Units 11:40 07:46 Sodium 136 L 137 (137-145) mmol/L Potassium 4.4 3.9 (3.5-5.1) mmol/L Chloride 104 102 (98-107) mmol/L Carbon Dioxide 19 L 19 L (22-30) mmol/L BUN 17 17 (7-17) mg/dL Creatinine 1.14 H 1.10 H (0.52-1.04) mg/dL Glucose 101 H 77 (74-99) mg/dL Calcium 9.2 9.3 (8.4-10.2) mg/dL Total Bilirubin 0.7 0.6 (0.2-1.3) mg/dL AST 17 17 (14-36) U/L ALT 10 10 (4-34) U/L Alkaline Phosphatase 51 49 (38-126) U/L Total Protein 6.5 6.8 (6.3-8.2) g/dL Albumin 3.3 L 3.5 (3.5-5.0) g/dL
--- NOTE | 2019-12-09 10:09 | XR ---
EXAMINATION TYPE: XR abdomen 2V DATE OF EXAM: 12/09/2019 9:10 AM CLINICAL HISTORY: Abdominal pain and small bowel obstruction TECHNIQUE: Upright and supine images of the abdomen were obtained. COMPARISON: CT abdomen pelvis dated 12/08/2019. FINDINGS: The previously seen dilated loops of small bowel are no longer dilated radiographically. No dilated large bowel is seen. Ventral abdominal hernia repair is evident with numerous surgical clips . Lung bases are well aerated with no pneumoperitoneum appreciated. Severe dextroscoliosis of the tho racolumbar junction and severe multilevel degenerative disc disease is seen. Advanced degenerative ch christel of the hips. Contrast is seen within the urinary bladder from recent CT. IMPRESSION: Resolution of the previously seen dilated loops of small bowel. Radiographically there is a nonobstructive bowel gas pattern.
[2019-12-09 11:26] LABS: Glucose,Whole Blood 70 mg/dL (75-99)
[2019-12-09] MEDS ORDERED: HEPARIN SODIUM,PORCINE 5,000 UNIT/ML 1 ML VIAL IV ONE (11:46)
[2019-12-09] MEDS: HEPARIN SOD,PORK IN 0.45% NACL 25,000 UNIT in 0.45% NACL 1 250ML.BAG IV SCH (12:24)
[2019-12-09 12:33] LABS: INR 1.1 (<1.2); Partial Thromboplastin Time 24.4 sec (22.0-30.0); Prothrombin Time 10.9 sec (9.0-12.0)
[2019-12-09 12:48] LABS: Glucose,Whole Blood 69 mg/dL (75-99)
[2019-12-09 13:02] LABS: Basophils % (A) 0 %; Eosinophils # (A) 0.1 k/uL (0-0.7); Eosinophils % (A) 1 %; HCT 42.6 % (34.0-46.0); HGB 13.3 gm/dL (11.4-16.0); Hypochromasia Slight; Lymphocytes # (A) 0.8 k/uL (1.0-4.8); Lymphocytes % (A) 10 %; MCH 30.5 pg (25.0-35.0); MCHC 31.2 g/dL (31.0-37.0); MCV 97.7 fL (80.0-100.0); Mean Platelet Volume 8.1; Monocytes # (A) 0.5 k/uL (0-1.0); Monocytes % (A) 6 %; Neutrophils # (A) 7.1 k/uL (1.3-7.7); Neutrophils % (A) 82 %; Platelet Count 270 k/uL (150-450); RBC 4.36 m/uL (3.80-5.40); RDW 12.9 % (11.5-15.5); WBC 8.7 k/uL (3.8-10.6)
[2019-12-09 13:16] LABS: Glucose,Whole Blood 75 mg/dL (75-99)
[2019-12-09 14:30] LABS: Glucose,Whole Blood 129 mg/dL (75-99)
--- NOTE | 2019-12-09 14:34 | P.PN ---
Subjective Progress Note Date: 12/09/19 (delayed charting seen at 1045) Principal diagnosis: abdominal pain Patient is a 74-year-old female with atrial fibrillation on chronic anticoagulation therapy and antiarrhythmic therapy, diabetes mellitus type 2 on oral medications, prior pulmonary embolism and DVTs who presented to the hospital with complaints of abdominal pain. In the ER she underwent an extensive evaluation. She was found be tachycardic on arrival with a heart rate of 103. Initial laboratory analysis showed a creatinine of 1.14, urinalysis is unremarkable, stool occult blood negative, and crust virus PCR not detected. She underwent a CT abdomen and pelvis which showed a mid to distal acute small bowel obstruction likely from adhesions centered in the left lower quadrant. A nasogastric tube was placed and the patient was admitted for small bowel obstruction and surgery was consulted. On the morning of 12/[address] and felt that there was possible component of some diverticulitis. Patient's stated that she had been treated for diverticulitis multiple times over the last several months. She was subsequently started on a clear liquid diet as well as antibiotics. Patient seen and examined at bedside. She denies any abdominal pain, nausea, vomiting, or diarrhea. She does admit to being intermittently confused. Objective - Vital Signs Vital signs: Vital Signs Temp 97.5 F L 12/09/19 07:00 Pulse 111 H 12/09/19 07:00 Resp 18 12/09/19 07:00 BP 127/63 12/09/19 07:00 Pulse Ox 96 12/09/19 07:00 Intake & Output 12/08/19 12/09/19 12/09/19 18:59 06:59 18:59 Intake Total 600 Output Total 50 Balance 550 Weight 90.718 kg Intake: Intake, IV Titration 600 Amount Sodium Chloride 0.9% 1, 600 000 ml @ 75 mls/hr IV . [id number] [facility] Rx#:[id number] Output: Gastric Drainage 50 Other: Voiding Method Toilet Toilet # Voids 1 # Bowel Movements 2 - Exam General: non toxic, no distress, appears at stated age Derm: warm, dry Head: atraumatic, normocephalic, symmetric Eyes: EOMI, no lid lag, anicteric sclera Mouth: no lip lesion, mucus membranes dry Cardiovascular: S1S2 reg, no murmur, positive posterior tibial pulse bilateral, Lungs: CTA bilateral, no rhonchi, no rales , no accessory muscle use Abdominal: soft, nontender to palpation, no guarding, no appreciable organomegaly Ext: no gross muscle atrophy, no edema, no contractures Neuro: CN II-XI grossly intact, no focal neuro deficits Psych: Alert, oriented, appropriate affect - Labs CBC & Chem 7: 12/09/19 11:55 12/09/19 07:46 Labs: Abnormal Lab Results - Last 24 Hours (Table) 12/08/19 12/09/19 12/09/19 Range/Units 16:33 07:46 07:46 WBC 10.8 H (3.8-10.6) k/uL Hct 47.2 H (34.0-46.0) % Neutrophils # 8.9 H (1.3-7.7) k/uL Lymphocytes # (1.0-4.8) k/uL Carbon Dioxide 19 L (22-30) mmol/L Creatinine 1.10 H (0.52-1.04) mg/dL POC Glucose (mg/dL) 73 L (75-99) mg/dL Magnesium 1.5 L (1.6-2.3) mg/dL 12/09/19 12/09/19 12/09/19 Range/Units 11:23 11:55 12:46 WBC (3.8-10.6) k/uL Hct (34.0-46.0) % Neutrophils # (1.3-7.7) k/uL Lymphocytes # 0.8 L (1.0-4.8) k/uL Carbon Dioxide (22-30) mmol/L Creatinine (0.52-1.04) mg/dL POC Glucose (mg/dL) 70 L 69 L (75-99) mg/dL Magnesium (1.6-2.3) mg/dL Assessment and Plan Assessment: Partial small bowel to structured with possible underlying diverticulitis -Case discussed with Dr. Oconnell, clear liquid diet, will start heparin drip and hold Eliquis in case surgical intervention is needed -Zosyn -Pain medications -Antiemetics -While patient is nothing by mouth will hold Aldactone which is her mild diuret ic Atrial fibrillation, currently rate controlled -Resume patient's flecainide and verapamil -Follow heart rate -Eliquis on hold in case surgical procedure as needed, patient is covered with heparin drip Diabetes mellitus type 2, intermittent hypoglycemia -Continue to hold metformin -Hemoglobin A1c 5.1 last May 2019 -Sliding-scale insulin as needed -If she has another episode of hypoglycemia now that she is tolerating clear liquids would start D5 half-normal Chronic kidney disease stage III -Baseline creatinine 1.3, appears at or better than baseline -Avoid nephrotoxic agents -Renal dose medications -Follow creatinine Chronic: Osteoarthritis History of pulmonary embolism and deep vein thrombosis History of hypothyroidism DVT prophylaxis: SCDs Discussed with: Patient, nursing Anticipated discharge: 1-[address]: home A total of 35 minutes was spent on the care of this complex patient more than 50% of the time was spent in counseling and care coordination.
[2019-12-09] MEDS: amLODIPine 5 MG TAB PO SCH (15:03)
[2019-12-09] MEDS: VERAPAMIL SR 120 MG TABLET.ER PO SCH (15:04)
[2019-12-09] MEDS: PIPERACILLIN-TAZOBACTAM 3.375 GM in SODIUM CHLORIDE 0.9% 100 ML IVPB SCH ×2 (15:04→23:10)
[2019-12-09] MEDS: FLECAINIDE 50 MG TAB PO SCH ×2 (15:04→20:50)
--- NOTE | 2019-12-09 15:21 | CDI ---
Documentation Clarification Form Date: 12/09/2019 03:13:40 PM From: Diane Barrera RN, CCDS Admit Date: 12/08/2019 01:50:00 PM Patient Name: Verona Dickson Visit Number: [id number] ATTENTION: The Clinical Documentation Specialists (CDI) and [facility] Coding Staff appreciate your assistance in clarifying documentation. Please respond to the clarification below the line at the bottom and electronically sign. The CDI & [facility] Coding staff will review the response and follow-up if needed. Please note: Queries are made part of the Legal Health Record. If you have any questions, please contact the author of this message via ITS. Dr. Caroline Alvarez Atrial Fibrillation RVR is documented and requires further specificity. History/Risk Factors: Atrial Fib, DVT, PE Clinical Indicators: 12/08 Attending Progress Note: atrial fibrillation on chronic anticoagulation therapy and antiarrhythmic therapy, atrial fibrillation, currently rate controlled. Resume patient's flecainide and verapamil. Follow heart rate. Eliquis on hold in case surgical procedure as needed, patient is covered with heparin drip EKG: ST Treatment: Tambocor 50 mg PO Q 12 hrs Verapamil 120 mg PO QD Heparin Gtt protocol In your professional opinion, can you please clarify the type of Atrial Fibrillation, if known? Chronic/Permanent Paroxysmal Persistent Other, please specify Unable to determine (Last Revision: November 2017) Paroxysmal MTDD
--- NOTE | 2019-12-09 15:29 | CDI ---
Documentation Clarification Form Date: 12/09/2019 03:22:14 PM From: Diane Barrera RN, CCDS Admit Date: 12/08/2019 01:50:00 PM Patient Name: Verona Dickson Visit Number: [id number] ATTENTION: The Clinical Documentation Specialists (CDI) and [facility] Coding Staff appreciate your assistance in clarifying documentation. Please respond to the clarification below the line at the bottom and electronically sign. The CDI & [facility] Coding staff will review the response and follow-up if needed. Please note: Queries are made part of the Legal Health Record. If you have any questions, please contact the author of this message via ITS. Dr. Caroline Alvarez Coronavirus (PCR) screening was preformed on this patient. All patients receiving Coronavirus screening require documentation of results in the medical record. Patient history/risk factors: Atrial Fib, DM, PE Clinical Indicators: 12/07 Coronavirus (PCR) Not detected 12/07 1057 Vital Signs: Temp 97.9, HR 103, RR 18, B/P 103/71, Spo2 93% RA Treatment: Zosyn 3.375 IVPB Q 8 hrs 12/07 1L 0.9%NS IVF Bolus followed by 75cc/hr In order to capture the severity of condition, please clarify if the above treatment/clinical indicators signify: COVID-19 ruled out Other, please specify (Last Form Revision: October 2019) COVID-19 ruled out MTDD
[2019-12-09 16:26] LABS: Glucose,Whole Blood 84 mg/dL (75-99)
[2019-12-09] MEDS ORDERED: SODIUM CHLORIDE 0.9% 500 ML 500 ML IV ONE (17:40)
[2019-12-09] MEDS: DILTIAZEM 125 MG in SODIUM CHLORIDE 0.9% 100 ML IV SCH (19:51)
[2019-12-09 20:07] LABS: Glucose,Whole Blood 96 mg/dL (75-99)
[2019-12-09] MEDS: MAGNESIUM SULFATE-D5W PMX 1 GM in DEXTROSE/WATER 1 100ML.BAG IVPB SCH ×3 (20:50→23:11)
[2019-12-10 06:07] LABS: Glucose,Whole Blood 82 mg/dL (75-99)
[2019-12-10] MEDS: SODIUM CHLORIDE 0.9% 1,000 ML IV SCH ×2 (06:07→21:02)
[2019-12-10 07:36] LABS: Calcium 8.5 mg/dL (8.4-10.2); Magnesium 1.9 mg/dL (1.6-2.3); Potassium 3.7 mmol/L (3.5-5.1)
[2019-12-10 07:38] LABS: Basophils % (A) 1 %; Eosinophils # (A) 0.3 k/uL (0-0.7); Eosinophils % (A) 5 %; HCT 42.6 % (34.0-46.0); HGB 13.7 gm/dL (11.4-16.0); Lymphocytes # (A) 1.1 k/uL (1.0-4.8); Lymphocytes % (A) 16 %; MCH 30.9 pg (25.0-35.0); MCHC 32.2 g/dL (31.0-37.0); MCV 96.1 fL (80.0-100.0); Mean Platelet Volume 7.8; Monocytes # (A) 0.4 k/uL (0-1.0); Monocytes % (A) 6 %; Neutrophils # (A) 4.8 k/uL (1.3-7.7); Neutrophils % (A) 72 %; Platelet Count 286 k/uL (150-450); RBC 4.43 m/uL (3.80-5.40); RDW 12.7 % (11.5-15.5); WBC 6.7 k/uL (3.8-10.6)
[2019-12-10] MEDS: amLODIPine 5 MG TAB PO SCH (08:03)
[2019-12-10] MEDS: FLECAINIDE 50 MG TAB PO SCH ×2 (08:03→21:02)
[2019-12-10] MEDS: INSULIN ASPART (NovoLOG) 100 UNIT/ML VIAL SQ SCH ×4 (08:04→20:59)
[2019-12-10] MEDS: VERAPAMIL SR 120 MG TABLET.ER PO SCH (08:04)
[2019-12-10] MEDS: PIPERACILLIN-TAZOBACTAM 3.375 GM in SODIUM CHLORIDE 0.9% 100 ML IVPB SCH ×2 (08:04→15:21)
[2019-12-10] MEDS ORDERED: SODIUM CHLORIDE 0.9% 500 ML 500 ML IV ONE (08:19)
[2019-12-10] MEDS ORDERED: DILTIAZEM DRIP BOLUS FROM BAG 1 MG SOLN IV ONE (08:26)
[2019-12-10] MEDS ORDERED: DILTIAZEM 125 MG in SODIUM CHLORIDE 0.9% 100 ML IV SCH (08:26)
[2019-12-10] MEDS: HEPARIN SODIUM,PORCINE 5,000 UNIT/ML 1 ML VIAL IV PRN ×2 (08:28→15:22)
[2019-12-10] MEDS: ACETAMINOPHEN TAB 325 MG TAB PO PRN (08:28)
--- NOTE | 2019-12-10 10:06 | P.PN ---
Subjective Progress Note Date: 12/10/19 Principal diagnosis: Small bowel obstruction Patient seems to be doing fairly well today. She is more alert. Better historian at this time. She was transferred to [facility] because of A. fib with RVR. White blood cell count normal. Denies pain. No bowel movement since yest erday. No nausea or vomiting. She is hungry. She was hoping to go home today. Objective - Vital Signs Vital signs: Vital Signs Temp 98.1 F 12/10/19 07:54 Pulse 84 12/10/19 10:01 Resp 16 12/10/19 07:54 BP 101/68 12/10/19 10:01 Pulse Ox 96 12/10/19 07:54 Intake & Output 12/09/19 12/10/19 12/10/19 18:59 06:59 18:59 Intake Total 368.729 91.236 Output Total 0 Balance 368.729 91.236 Weight 105.9 kg Intake: Intake, IV Titration 128.729 91.236 Amount Heparin Sod,Pork in 0.45% 128.729 91.236 NaCl 25,000 unit In 0.45 % NaCl 1 250ml.bag @ 11 UNITS/KG/HR 9.979 mls/hr IV .Q24H [facility] Rx#: [id number] Oral 240 Output: Urine 0 Other: Voiding Method Toilet # Voids 4 3 # Bowel Movements 3 1 - Exam Abdomen: Soft, nondistended, midline fullness from previous seroma, nontender - Labs CBC & Chem 7: 12/10/19 07:05 12/10/19 07:05 Labs: Abnormal Lab Results - Last 24 Hours (Table) 12/09/19 12/09/19 12/09/19 Range/Units 11:23 11:55 12:46 Lymphocytes # 0.8 L (1.0-4.8) k/uL APTT (22.0-30.0) sec Chloride (98-107) mmol/L Carbon Dioxide (22-30) mmol/L POC Glucose (mg/dL) 70 L 69 L (75-99) mg/dL 12/09/19 12/09/19 12/10/19 Range/Units 14:28 17:38 07:05 Lymphocytes # (1.0-4.8) k/uL APTT 31.9 H (22.0-30.0) sec Chloride 108 H (98-107) mmol/L Carbon Dioxide 21 L (22-30) mmol/L POC Glucose (mg/dL) 129 H (75-99) mg/dL 12/10/19 Range/Units 07:05 Lymphocytes # (1.0-4.8) k/uL APTT 35.4 H (22.0-30.0) sec Chloride (98-107) mmol/L Carbon Dioxide (22-30) mmol/L POC Glucose (mg/dL) (75-99) mg/dL Assessment and Plan (1) SBO (small bowel obstruction) Narrative/Plan: Small bowel obstruction likely related to subacute diverticulitis. Continue antibiotics. Advance to full liquid diet. Monitor bowel function. Repeat abdominal x-rays and CBC tomorrow. Current Visit: Yes Status: Acute Code(s): K56.609 - UNSP INTESTNL OBST, UNSP TO PARTIAL VERSUS COMPLETE OBST SNOMED Code(s): 601468459
[2019-12-10 11:21] LABS: Glucose,Whole Blood 108 mg/dL (75-99)
[2019-12-10] MEDS: HEPARIN SOD,PORK IN 0.45% NACL 25,000 UNIT in 0.45% NACL 1 250ML.BAG IV SCH (11:31)
[2019-12-10] MEDS: DILTIAZEM 125 MG in SODIUM CHLORIDE 0.9% 100 ML IV SCH (11:32)
--- NOTE | 2019-12-10 12:53 | P.CRDCN ---
History of Present Illness Consult date: 12/10/19 History of present illness: This is a 74-year-old female with history of atrial fibrillation, lea-pnwcqlc-xurkweacn diamonds mellitus, history of PE being maintained on ca lcium channel rajni and flecainide with maintenance of sinus rhythm. Patient also was on anticoagulation. She was admitted to the hospital this time with abdominal pain and diarrhea and possible diverticulitis and small bowel subsection. Patient did not get an antiarrhythmic medication. Patient went into atrial fibrillation, rapid ventricular response. Patient was transferred to telemetry unit. She was initiated on IV Cardizem and her flecainide was resumed. Patient was put on verapamil. Patient is feeling better now. She is going to be watched for 24 hours and possibly could be discharged home tomorrow. She should also on anti-cognition therapy, if cleared by surgery. Meanwhile patient is on heparin. She denies any chest pain or shortness of breath. Continue to follow Review of Systems As per HPI Past Medical History Past Medical History: Atrial Fibrillation, Diabetes Mellitus, Deep Vein Thrombosis (DVT), Musculoskeletal Disorder, Osteoarthritis (OA), Pulmonary Embolus (PE), Skin Disorder, Vascular Disorder Additional Past Medical History / Comment(s): PE X2, SWELLING IN LEGS, WOUNDS RIVERA LEGS, DDD WITH BACK PAIN, LOW THYROID A TEENAGER,HX OF KIDNEY STONES. See DR Fonseca [facility] & P History of Any Multi-Drug Resistant Organisms: None Reported Past Surgical History: Hernia Repair, Hysterectomy, Tonsillectomy Additional Past Surgical History / Comment(s): PARTIAL HYSTERECTOMY, RIVERA OOPHERECTOMY.CARDIOVERSION 05-10-15. AND 07-10-15 Past Anesthesia/Blood Transfusion Reactions: No Reported Reaction Past Psychological History: No Psychological Hx Reported Smoking Status: Never smoker Past Alcohol Use History: Rare Past Drug Use History: None Reported - Past Family History Mother Family Medical History: Cancer, Dementia Additional Family Medical History / Comment(s): BREAST & UTERINE CA, of blood clot during sugery at age 89yrs. Father Family Medical History: Myocardial Infarction (UT) Additional Family Medical History / Comment(s): Father of [place] at age 64 yrs. Medications and Allergies Home Medications Medication Instructions Recorded Confirmed Type Spironolactone [Aldactone] 100 mg PO BID 12/20/13 12/08/19 History Apixaban [Eliquis] 5 mg PO BID 05/08/15 12/08/19 History Flecainide Acetate 50 mg PO BID 12/08/19 12/08/19 History Verapamil HCl [Verapamil ER] 120 mg PO DAILY 12/08/19 12/08/19 History amLODIPine [Norvasc] 5 mg PO DAILY 12/08/19 12/08/19 History metFORMIN HCL ER [Glucophage Xr] 500 mg PO DAILY 12/08/19 12/08/19 History Allergies Allergy/AdvReac Type Severity Reaction Status Date / Time adhesive Allergy Intermediate Rash/Hives Verified 12/08/19 12:15 cefuroxime axetil Allergy Intermediate Unknown Verified 12/08/19 12:15 [From Ceftin] Sulfa (Sulfonamide Allergy Intermediate Unknown Verified 12/08/19 12:15 Antibiotics) levofloxacin [From Levaquin] AdvReac Severe Rapid Verified 12/08/19 12:15 Heart Rate, dizziness,difficulty walking sulfamethoxazole AdvReac Severe Rapid Verified 12/08/19 12:15 [From Bactrim] Heart Rate trimethoprim [From Bactrim] AdvReac Severe Rapid Verified 12/08/19 12:15 Heart Rate molds AdvReac Unknown Runny nose Uncoded 12/08/19 11:02 & eyes, looses voice Physical Exam Vitals: Vital Signs Temp Pulse Resp BP Pulse Ox 12/10/19 11:40 97.4 F L 76 16 121/74 96 12/10/19 10:01 84 101/68 12/10/19 07:54 98.1 F 129 H 16 87/64 96 12/10/19 04:00 97.9 F 95 18 102/65 96 12/09/19 23:41 97.8 F 108 H 20 106/74 95 12/09/19 20:00 97.6 F 115 H 18 106/68 99 12/09/19 15:00 97.8 F 65 17 136/89 96 Intake and Output 12/09/19 12/10/19 12/10/19 22:59 06:59 14:59 Intake Total 240 128.729 199.688 Output Total 0 Balance 240 128.729 199.688 Intake: Intake, IV Titration 128.729 199.688 Amount Diltiazem 125 mg In 78.417 Sodium Chloride 0.9% 100 ml @ 5 MG/HR 5 mls/hr IV .Q24H [facility] Rx#:[id number] Heparin Sod,Pork in 0.45% 128.729 121.271 NaCl 25,000 unit In 0.45 % NaCl 1 250ml.bag @ 11 UNITS/KG/HR 9.979 mls/hr IV .Q24H [facility] Rx#: [id number] Oral 240 Output: Urine 0 Other: # Voids 3 # Bowel Movements 1 Weight 105.9 kg GENERAL EXAM: Patient is alert and oriented and doesn't appear to be in any acute distress HEENT: Normocephalic. Normal reaction of pupils, equal size, normal range of extraocular motion. No erythema or exudates in the throat. NECK: No masses, no nuchal rigidity. CHEST: No chest wall deformity. LUNGS: Equal air entry with no crackles or wheeze. HEART: S1 and S2 normal with no audible mumurs or gallops. Regular rhythm, femorals equal on both sides.. ABDOMEN: No rigidity SKIN: No rashes CENTRAL NERVOUS SYSTEM: No focal deficits. EXTREMITIES: No cyanosis, clubbing or edema. Results 12/10/19 07:05 12/10/19 07:05 Coagulation 12/09/19 12/10/19 12/10/19 Range/Units 17:38 00:33 07:05 APTT 31.9 H 29.6 35.4 H (22.0-30.0) sec CBC 12/09/19 12/10/19 Range/Units 11:55 07:05 WBC 8.7 6.7 (3.8-10.6) k/uL RBC 4.36 4.43 (3.80-5.40) m/uL Hgb 13.3 13.7 (11.4-16.0) gm/dL Hct 42.6 42.6 (34.0-46.0) % Plt Count 270 286 (150-450) k/uL Comprehensive Metabolic Panel 12/10/19 Range/Units 07:05 Sodium 137 (137-145) mmol/L Potassium 3.7 (3.5-5.1) mmol/L Chloride 108 H (98-107) mmol/L Carbon Dioxide 21 L (22-30) mmol/L BUN 12 (7-17) mg/dL Creatinine 0.93 (0.52-1.04) mg/dL Glucose 85 (74-99) mg/dL Calcium 8.5 (8.4-10.2) mg/dL Current Medications Generic Name Dose Route Start Last Admin Trade Name Freq PRN Reason Stop Dose Admin Acetaminophen 650 mg 12/10/19 08:19 12/10/19 08:28 Tylenol Tab PO 650 mg Q6HR PRN Administration Fever and/ or Pain Benzocaine 1 spray 12/08/19 17:45 Hurricaine Superior MUCOUS MEM QID PRN Mouth Irritation Flecainide Acetate 50 mg 12/09/19 14:30 12/10/19 08:03 Tambocor PO 50 mg Q12HR [facility] Administration Heparin Sodium (Porcine) 0 unit 12/09/19 11:46 12/10/19 08:28 Heparin IV 2,500 unit PER PROTOCOL PRN Administration Low PTT Protocol Sodium Chloride 1,000 mls @ 75 mls/hr 12/08/19 13:30 12/10/19 06:07 Saline 0.9% IV Not Given [id number] Piperacillin Sod/Tazobactam 100 mls @ 25 mls/hr 12/09/19 16:00 12/10/19 08:04 Sod 3.375 gm/ Sodium Chloride IVPB 25 mls/hr Q8HR [facility] Administration Heparin Sodium/Sodium Chloride 250 mls @ 9.979 mls/hr 12/09/19 12:00 12/10/19 11:31 25,000 unit/ Sodium Chloride IV 16 units/kg/hr .Q24H [facility] 14.515 mls/hr Administration Protocol 11 UNITS/KG/HR Diltiazem HCl 125 mg/ Sodium 125 mls @ 5 mls/hr 12/09/19 19:45 12/10/19 11:32 Chloride IV 5 mg/hr .Q24H [facility] 5 mls/hr Administration 5 MG/HR Insulin Aspart 0 unit 12/08/19 18:00 12/10/19 11:33 Novolog SQ Not Given QID [facility] Protocol Metoprolol Tartrate 2.5 mg 12/08/19 14:43 Lopressor IVP Q6HR PRN Tachyarrhythmias Morphine Sulfate 2 mg 12/08/19 14:41 Morphine Sulfate (Inj) IV Q4HR PRN Severe Pain Naloxone HCl 0.2 mg 12/08/19 14:41 Narcan IV Q2M PRN Opioid Reversal Ondansetron HCl 4 mg 12/08/19 13:27 Zofran IVP Q8HR PRN Nausea And Vomiting Verapamil HCl 120 mg 12/09/19 14:30 12/10/19 08:04 Isoptin Sr PO 120 mg DAILY [facility] Administration Intake and Output 12/09/19 12/10/19 12/10/19 22:59 06:59 14:59 Intake Total 240 128.729 199.688 Output Total 0 Balance 240 128.729 199.688 Intake: Intake, IV Titration 128.729 199.688 Amount Diltiazem 125 mg In 78.417 Sodium Chloride 0.9% 100 ml @ 5 MG/HR 5 mls/hr IV .Q24H [facility] Rx#:[id number] Heparin Sod,Pork in 0.45% 128.729 121.271 NaCl 25,000 unit In 0.45 % NaCl 1 250ml.bag @ 11 UNITS/KG/HR 9.979 mls/hr IV .Q24H [facility] Rx#: [id number] Oral 240 Output: Urine 0 Other: # Voids 3 # Bowel Movements 1 Weight 105.9 kg 12/10/19 07:05 12/10/19 07:05 EKG Interpretations (text) Initial EKG showed sinus tachycardia Assessment and Plan Plan: Patient is admitted with abdominal pain and diarrhea. Being treated for possible diverticulitis and small bowel obstruction. Patient is in and out of atrial fibrillation with rate control. We'll continue current medical therapy. Resume oral anticoagulation when cleared by surgery
--- NOTE | 2019-12-10 13:53 | P.PN ---
Subjective Progress Note Date: 12/10/19 (delayed charting seen at 1030) Principal diagnosis: abdominal pain Patient is a 74-year-old female with atrial fibrillation on chronic anticoagulation therapy and antiarrhythmic therapy, diabetes mellitus type 2 on oral medications, prior pulmonary embolism and DVTs who presented to the hospital with complaints of abdominal pain. In the ER she underwent an extensive evaluation. She was found be tachycardic on arrival with a heart rate of 103. Initial laboratory analysis showed a creatinine of 1.14, urinalysis is unremarkable, stool occult blood negative, and crust virus PCR not detected. She underwent a CT abdomen and pelvis which showed a mid to distal acute small bowel obstruction likely from adhesions centered in the left lower quadrant. A nasogastric tube was placed and the patient was admitted for small bowel obstruction and surgery was consulted. On the morning of 12/[address] and felt that there was possible component of some diverticulitis. Patient's stated that she had been treated for diverticulitis multiple times over the last several months. She was subsequently started on a clear liquid diet as well as antibiotics by surgery. Her by mouth medications were restarted with the exception of eliquis incase surgery was needed. She developed A fib with RVR on the evening of 12/08 requiring transfer to [facility] an initiation of a cardizem gtt. Cardiology was consulted. The morning of 12/09 her heart rate was much improved. She was able to come off the Cardizem drip. Patient seen and examined at bedside. She denies chest pain, shortness of breath, nausea, and vomiting. She does complain of slight abdominal pain though this is not severe. Last evening she did feel a fluttering in her chest but no p ain, this has since resolved. Objective - Vital Signs Vital signs: Vital Signs Temp 97.4 F L 12/10/19 11:40 Pulse 76 12/10/19 11:40 Resp 16 12/10/19 11:40 BP 121/74 12/10/19 11:40 Pulse Ox 96 12/10/19 11:40 Intake & Output 12/09/19 12/10/19 12/10/19 18:59 06:59 18:59 Intake Total 368.729 199.688 Output Total 0 Balance 368.729 199.688 Weight 105.9 kg Intake: Intake, IV Titration 128.729 199.688 Amount Diltiazem 125 mg In 78.417 Sodium Chloride 0.9% 100 ml @ 5 MG/HR 5 mls/hr IV .Q24H [facility] Rx#:[id number] Heparin Sod,Pork in 0.45% 128.729 121.271 NaCl 25,000 unit In 0.45 % NaCl 1 250ml.bag @ 11 UNITS/KG/HR 9.979 mls/hr IV .Q24H [facility] Rx#: [id number] Oral 240 Output: Urine 0 Other: Voiding Method Toilet # Voids 4 3 # Bowel Movements 3 1 - Exam General: non toxic, no distress, appears at stated age Derm: warm, dry Head: atraumatic, normocephalic, symmetric Eyes: EOMI, no lid lag, anicteric sclera Mouth: no lip lesion, mucus membranes dry Cardiovascular: S1S2 irreg, no murmur, positive posterior tibial pulse bilatera l, Lungs: Decreased bilateral, no rhonchi, no rales , no accessory muscle use Abdominal: soft, + tender to palpation LLQ, no guarding, no appreciable organomegaly Ext: no gross muscle atrophy, 2+ edema, no contractures Neuro: CN II-XI grossly intact, no focal neuro deficits Psych: Alert, oriented, appropriate affect - Labs CBC & Chem 7: 12/10/19 07:05 12/10/19 07:05 Labs: Abnormal Lab Results - Last 24 Hours (Table) 12/09/19 12/09/19 12/10/19 Range/Units 14:28 17:38 07:05 APTT 31.9 H (22.0-30.0) sec Chloride 108 H (98-107) mmol/L Carbon Dioxide 21 L (22-30) mmol/L POC Glucose (mg/dL) 129 H (75-99) mg/dL 12/10/19 12/10/19 Range/Units 07:05 11:19 APTT 35.4 H (22.0-30.0) sec Chloride (98-107) mmol/L Carbon Dioxide (22-30) mmol/L POC Glucose (mg/dL) 108 H (75-99) mg/dL Assessment and Plan Assessment: Partial small bowel to structured with possible underlying diverticulitis -heparin drip and hold Eliquis in case surgical intervention is needed - advanced to full liquid diet -Zosyn -Pain medications -Antiemetics -While patient is nothing by mouth will hold Aldactone which is her mild diuretic, she also has been having mild hypotension Atrial fibrillation, currently rate controlled - A fib RVR overnight on 12/08 - cardio recs appreciated - Cardizem gtt stopped - flecainide and verapamil -Tele -Eliquis on hold in case surgical procedure as needed, patient is covered with heparin drip Diabetes mellitus type 2, intermittent hypoglycemia -Continue to hold metformin -Hemoglobin A1c 5.1 last May 2019 -Sliding-scale insulin as needed Chronic kidney disease stage III -Baseline creatinine 1.3, appears at or better than baseline likely due to aldactone being held -Avoid nephrotoxic agents -Renal dose medications -Follow creatinine Chronic: Osteoarthritis History of pulmonary embolism and deep vein thrombosis History of hypothyroidism DVT prophylaxis: SCDs Discussed with: Patient, nursing, updated over phone on 12/09 (was also updated by Dr. Cerda on 12/08) Anticipated discharge: [address]: home A total of 25 minutes was spent on the care of this complex patient more than 50% of the time was spent in counseling and care coordination.
[2019-12-10 16:34] LABS: Glucose,Whole Blood 143 mg/dL (75-99)
[2019-12-10 19:42] LABS: Glucose,Whole Blood 126 mg/dL (75-99)
[2019-12-11] MEDS: PIPERACILLIN-TAZOBACTAM 3.375 GM in SODIUM CHLORIDE 0.9% 100 ML IVPB SCH ×4 (00:03→22:49)
[2019-12-11] MEDS: HEPARIN SOD,PORK IN 0.45% NACL 25,000 UNIT in 0.45% NACL 1 250ML.BAG IV SCH (02:44)
[2019-12-11 03:21] LABS: Basophils % (A) 1 %; Eosinophils # (A) 0.3 k/uL (0-0.7); Eosinophils % (A) 5 %; HCT 41.7 % (34.0-46.0); HGB 13.3 gm/dL (11.4-16.0); Hypochromasia Slight; Lymphocytes # (A) 1.4 k/uL (1.0-4.8); Lymphocytes % (A) 24 %; MCH 31.4 pg (25.0-35.0); MCHC 31.9 g/dL (31.0-37.0); MCV 98.3 fL (80.0-100.0); Mean Platelet Volume 8.3; Monocytes # (A) 0.3 k/uL (0-1.0); Monocytes % (A) 5 %; Neutrophils # (A) 3.7 k/uL (1.3-7.7); Neutrophils % (A) 65 %; Platelet Count 263 k/uL (150-450); RBC 4.24 m/uL (3.80-5.40); RDW 12.9 % (11.5-15.5); WBC 5.7 k/uL (3.8-10.6)
[2019-12-11 03:41] LABS: Albumin 2.8 g/dL (3.5-5.0); Total Bilirubin 0.3 mg/dL (0.2-1.3); Total Protein 5.7 g/dL (6.3-8.2)
[2019-12-11 04:08] LABS: Calcium 8.7 mg/dL (8.4-10.2); Potassium 3.7 mmol/L (3.5-5.1)
[2019-12-11 05:55] LABS: Glucose,Whole Blood 78 mg/dL (75-99)
[2019-12-11] MEDS: ACETAMINOPHEN TAB 325 MG TAB PO PRN (08:13)
[2019-12-11] MEDS: FLECAINIDE 50 MG TAB PO SCH ×2 (08:13→20:14)
[2019-12-11] MEDS: INSULIN ASPART (NovoLOG) 100 UNIT/ML VIAL SQ SCH ×4 (08:14→20:54)
[2019-12-11] MEDS: SODIUM CHLORIDE 0.9% 1,000 ML IV SCH (08:18)
--- NOTE | 2019-12-11 09:11 | XR ---
EXAMINATION TYPE: XR abdomen 2V , 3 VIEWS DATE OF EXAM ORDERED: 12/11/2019 HISTORY: Follow-up obstruction. COMPARISON: Previous study dated 12/09/2019. FINDINGS: The lung bases are clear. Within the abdomen, the abdominal gas pattern is normal. There is no evidence of obstruction or free air. There are phleboliths within the pelvis. There is evidence of previous ventral hernia repair. Th ere is a mild dextroscoliosis. IMPRESSION: NO DEFINITE ACUTE INTRA-ABDOMINAL ABNORMALITY.
[2019-12-11] MEDS: VERAPAMIL SR 120 MG TABLET.ER PO SCH (09:41)
--- NOTE | 2019-12-11 10:48 | P.PN ---
Subjective Progress Note Date: 12/11/19 Principal diagnosis: Small bowel obstruction Patient doing well today. She had a large liquid stool. No nausea or vomiting. Thinks her midline swelling is slightly increased today. She is afebrile. White blood cell count normal. Objective - Vital Signs Vital signs: Vital Signs Temp 97.7 F 12/11/19 08:00 Pulse 87 12/11/19 08:00 Resp 18 12/11/19 08:00 BP 96/65 12/11/19 08:00 Pulse Ox 98 12/11/19 08:00 Intake & Output 12/10/19 12/11/19 12/11/19 18:59 06:59 18:59 Intake Total 1375.813 415.751 20 Output Total 200 Balance 1375.813 215.751 20 Weight 108.3 kg Intake: Intake, IV Titration 255.813 175.751 Amount Diltiazem 125 mg In 78.417 Sodium Chloride 0.9% 100 ml @ 5 MG/HR 5 mls/hr IV .Q24H [facility] Rx#:[id number] Heparin Sod,Pork in 0.45% 177.396 175.751 NaCl 25,000 unit In 0.45 % NaCl 1 250ml.bag @ 11 UNITS/KG/HR 9.979 mls/hr IV .Q24H [facility] Rx#: [id number] Oral 1120 240 20 Output: Urine 200 Other: # Voids 3 3 # Bowel Movements 1 - Exam Abdomen: Soft, nondistended, midline swelling unchanged, minimal left-sided tenderness - Labs CBC & Chem 7: 12/11/19 03:06 12/11/19 03:06 Labs: Abnormal Lab Results - Last 24 Hours (Table) 12/10/19 12/10/19 12/10/19 Range/Units 11:19 14:32 16:32 APTT 43.7 H (22.0-30.0) sec Creatinine (0.52-1.04) mg/dL POC Glucose (mg/dL) 108 H 143 H (75-99) mg/dL Alkaline Phosphatase (38-126) U/L Total Protein (6.3-8.2) g/dL Albumin (3.5-5.0) g/dL 12/10/19 12/10/19 12/11/19 Range/Units 19:31 21:01 03:06 APTT 76.8 H (22.0-30.0) sec Creatinine 1.09 H (0.52-1.04) mg/dL POC Glucose (mg/dL) 126 H (75-99) mg/dL Alkaline Phosphatase 37 L (38-126) U/L Total Protein 5.7 L (6.3-8.2) g/dL Albumin 2.8 L (3.5-5.0) g/dL 12/11/19 Range/Units 03:06 APTT 54.9 H (22.0-30.0) sec Creatinine (0.52-1.04) mg/dL POC Glucose (mg/dL) (75-99) mg/dL Alkaline Phosphatase (38-126) U/L Total Protein (6.3-8.2) g/dL Albumin (3.5-5.0) g/dL Assessment and Plan (1) SBO (small bowel obstruction) Narrative/Plan: Repeat abdominal x-rays reviewed. No obstruction seen. Will advance diet at this time. Possible discharge tomorrow if tolerating diet. Current Visit: Yes Status: Acute Code(s): K56.609 - UNSP INTESTNL OBST, UNSP TO PARTIAL VERSUS COMPLETE OBST SNOMED Code(s): 867105521
[2019-12-11 11:32] LABS: Glucose,Whole Blood 80 mg/dL (75-99)
[2019-12-11] MEDS: APIXABAN 5 MG TAB PO SCH ×2 (11:48→20:14)
--- NOTE | 2019-12-11 12:07 | P.PN ---
Subjective Progress Note Date: 12/11/19 This is a 74-year-old female patient with history of atrial fibrillation, persistent, psj-zwzenvj-btfdghyjb diabetes, history of PE, admitted to the hospital with abdominal pain and diarrhea, possible diverticulitis with small bowel obstruction. Patient did not get her antiarrhythmic medication and went into atrial fibrillation with a rapid ventricular response and was transferred to the telemetry unit. She was initiated on Cardizem and her flecainide was resumed. She was also put on her verapamil. Overall the patient has now been monitored for 24 hours. She is currently not on anticoagulation, this needs to be resumed when it is okay with GI. Objective - Vital Signs Vital signs: Vital Signs Temp 97.5 F L 12/11/19 11:49 Pulse 75 12/11/19 11:49 Resp 18 12/11/19 11:49 BP 141/67 12/11/19 11:49 Pulse Ox 99 12/11/19 11:49 Intake & Output 12/10/19 12/11/19 12/11/19 18:59 06:59 18:59 Intake Total 1375.813 415.751 20 Output Total 200 Balance 1375.813 215.751 20 Weight 108.3 kg Intake: Intake, IV Titration 255.813 175.751 Amount Diltiazem 125 mg In 78.417 Sodium Chloride 0.9% 100 ml @ 5 MG/HR 5 mls/hr IV .Q24H [facility] Rx#:[id number] Heparin Sod,Pork in 0.45% 177.396 175.751 NaCl 25,000 unit In 0.45 % NaCl 1 250ml.bag @ 11 UNITS/KG/HR 9.979 mls/hr IV .Q24H [facility] Rx#: [id number] Oral 1120 240 20 Output: Urine 200 Other: # Voids 3 3 # Bowel Movements 1 - Exam GENERAL EXAM: Patient is alert and oriented and doesn't appear to be in any acute distress HEENT: Normocephalic. Normal reaction of pupils, equal size, normal range of e xtraocular motion. No erythema or exudates in the throat. NECK: No masses, no nuchal rigidity. CHEST: No chest wall deformity. LUNGS: Equal air entry with no crackles or wheeze. HEART: S1 and S2 normal with no audible mumurs or gallops. Regular rhythm, femorals equal on both sides.. ABDOMEN: No rigidity SKIN: No rashes CENTRAL NERVOUS SYSTEM: No focal deficits. EXTREMITIES: No cyanosis, clubbing or edema. - Labs CBC & Chem 7: 12/11/19 03:06 12/11/19 03:06 Labs: Abnormal Lab Results - Last 24 Hours (Table) 12/10/19 12/10/19 12/10/19 Range/Units 14:32 16:32 19:31 APTT 43.7 H (22.0-30.0) sec Creatinine (0.52-1.04) mg/dL POC Glucose (mg/dL) 143 H 126 H (75-99) mg/dL Alkaline Phosphatase (38-126) U/L Total Protein (6.3-8.2) g/dL Albumin (3.5-5.0) g/dL 12/10/19 12/11/19 12/11/19 Range/Units 21:01 03:06 03:06 APTT 76.8 H 54.9 H (22.0-30.0) sec Creatinine 1.09 H (0.52-1.04) mg/dL POC Glucose (mg/dL) (75-99) mg/dL Alkaline Phosphatase 37 L (38-126) U/L Total Protein 5.7 L (6.3-8.2) g/dL Albumin 2.8 L (3.5-5.0) g/dL Assessment and Plan Plan: Assessment and plan #1 partial small bowel obstruction #2 paroxysmal atrial fibrillation, currently in a normal sinus rhythm, anticoagu lation continues to be on hold #3 diabetes #4 chronic kidney disease #5 history of PE and DVT #6 history of hypothyroidism Plan From cardiology's perspective, the patient may be able to be discharged home once cleared by primary and surgical perspective. She will need to be reinitiated on anticoagulation once cleared from surgery. DNP note has been reviewed, I agree with a documented findings and plan of care. Patient was seen and examined.
[2019-12-11] MEDS: SPIRONOLACTONE 25 MG TAB PO SCH ×2 (15:24→20:14)
--- NOTE | 2019-12-11 15:59 | P.PN ---
Subjective Progress Note Date: 12/11/19 (delayed [facility] seen at 1030) Principal diagnosis: abdominal pain Patient is a 74-year-old female with atrial fibrillation on chronic anticoagulation therapy and antiarrhythmic therapy, diabetes mellitus type 2 on oral medications, prior pulmonary embolism and DVTs who presented to the hospital with complaints of abdominal pain. In the ER she underwent an extensive evaluation. She was found be tachycardic on arrival with a heart rate of 103. Initial laboratory analysis showed a creatinine of 1.14, urinalysis is unremarkable, stool occult blood negative, and crust virus PCR not detected. She underwent a CT abdomen and pelvis which showed a mid to distal acute small bowel obstruction likely from adhesions centered in the left lower quadrant. A nasogastric tube was placed and the patient was admitted for small bowel obstruction and surgery was consulted. On the morning of 12/[address] and felt that there was possible component of some diverticulitis. Patient's stated that she had been treated for diverticulitis multiple times over the last several months. She was subsequently started on a clear liquid diet as well as antibiotics by surgery. Her by mouth medications were restarted with the exception of eliquis incase surgery was needed. She developed A fib with RVR on the evening of 12/08 requiring transfer [facility] an initiation of a cardizem gtt. Cardiology was consulted. The morning of 12/09 her heart rate was much improved. She was able to come off the Cardizem drip. Her abdominal pain continued to improve. She converted to normal sinus rhythm on 12/09. Patient seen and examined at bedside. Pain is feeling better, feeling very hungry lying to eat something, no nausea, no vomiting. She struggles with understanding the concept of why she is in the hospital and plan for discharge. Objective - Vital Signs Vital signs: Vital Signs Temp 97.6 F 12/11/19 15: Pulse 74 12/11/19 15:22 Resp 16 12/11/19 15:22 BP 125/68 12/11/19 15:22 Pulse Ox 97 12/11/19 15:22 Intake & Output 12/10/19 12/11/19 12/11/19 18:59 06:59 18:59 Intake Total 1375.813 415.751 100 Output Total 200 Balance 1375.813 215.751 100 Weight 108.3 kg Intake: Intake, IV Titration 255.813 175.751 Amount Diltiazem 125 mg In 78.417 Sodium Chloride 0.9% 100 ml @ 5 MG/HR 5 mls/hr IV .Q24H [facility] Rx#:[id number] Heparin Sod,Pork in 0.45% 177.396 175.751 NaCl 25,000 unit In 0.45 % NaCl 1 250ml.bag @ 11 UNITS/KG/HR 9.979 mls/hr IV .Q24H [facility]DA Rx#: [id number] Oral 1120 240 100 Output: Urine 200 Other: # Voids 3 3 3 # Bowel Movements 1 - Exam General: non toxic, no distress, appears at stated age Derm: Chronic venous stasis changes bilateral lower extremities, warm, dry Head: atraumatic, normocephalic, symmetric Eyes: EOMI, no lid lag, anicteric sclera Mouth: no lip lesion, mucus membranes dry Cardiovascular: S1S2 irreg, no murmur, positive posterior tibial pulse bilate ral, Lungs: Decreased bilateral, no rhonchi, no rales , no accessory muscle use Abdominal: soft, nontender tender to palpation, no guarding, no appreciable organomegaly Ext: no gross muscle atrophy, 2+ edema, no contractures Neuro: CN II-XI grossly intact, no focal neuro deficits Psych: Alert, oriented, appropriate affect - Labs CBC & Chem 7: 12/11/19 03:06 12/11/19 03:06 Labs: Abnormal Lab Results - Last 24 Hours (Table) 12/10/19 12/10/19 12/10/19 Range/Units 16:32 19:31 21:01 APTT 76.8 H (22.0-30.0) sec Creatinine (0.52-1.04) mg/dL POC Glucose (mg/dL) 143 H 126 H (75-99) mg/dL Alkaline Phosphatase (38-126) U/L Total Protein (6.3-8.2) g/dL Albumin (3.5-5.0) g/dL 12/11/19 12/11/19 Range/Units 03:06 03:06 APTT 54.9 H (22.0-30.0) sec Creatinine 1.09 H (0.52-1.04) mg/dL POC Glucose (mg/dL) (75-99) mg/dL Alkaline Phosphatase 37 L (38-126) U/L Total Protein 5.7 L (6.3-8.2) g/dL Albumin 2.8 L (3.5-5.0) g/dL Assessment and Plan Assessment: Partial small bowel to structured with possible underlying diverticulitis -Transition back to Eliquis -Dietary advance by surgery -Zosyn, did receive 4 doses of Cipro prior to hospitalization -Pain medications -Antiemetics Atrial fibrillation, currently rate controlled - A fib RVR overnight on 12/08 - cardio recs appreciated - flecainide and verapamil -Tele -heparin drip transitioned to Eliquis Diabetes mellitus type 2, intermittent hypoglycemia -Continue to hold metformin -Hemoglobin A1c 5.1 last May 2019 -Sliding-scale insulin as needed Chronic kidney disease stage III -Baseline creatinine 1.3, appears at or better than baseline likely due to aldactone being held -Avoid nephrotoxic agents -Renal dose medications -Follow creatinine Chronic: Osteoarthritis History of pulmonary embolism and deep vein thrombosis History of hypothyroidism DVT prophylaxis: SCDs Discussed with: Patient, nursing, updated over phone on 12/10 Anticipated discharge: In a.m. Anticipated discharge place: home A total of 25 minutes was spent on the care of this complex patient more than 50% of the time was spent in counseling and care coordination.
[2019-12-11 16:27] LABS: Glucose,Whole Blood 112 mg/dL (75-99)
[2019-12-11 20:31] LABS: Glucose,Whole Blood 97 mg/dL (75-99)
[2019-12-11 23:25] VITALS: RESP 18
[2019-12-12 04:00] LABS: Basophils # (A) 0.1 k/uL (0-0.2); Basophils % (A) 1 %; Eosinophils # (A) 0.2 k/uL (0-0.7); Eosinophils % (A) 4 %; HCT 37.4 % (34.0-46.0); HGB 11.9 gm/dL (11.4-16.0); Lymphocytes # (A) 1.1 k/uL (1.0-4.8); Lymphocytes % (A) 19 %; MCH 30.8 pg (25.0-35.0); MCV 96.2 fL (80.0-100.0); Mean Platelet Volume 7.9; Monocytes # (A) 0.3 k/uL (0-1.0); Monocytes % (A) 5 %; Neutrophils % (A) 70 %; Platelet Count 230 k/uL (150-450); RBC 3.88 m/uL (3.80-5.40); RDW 12.9 % (11.5-15.5); WBC 5.7 k/uL (3.8-10.6)
[2019-12-12 06:24] LABS: Glucose,Whole Blood 94 mg/dL (75-99)
[2019-12-12] MEDS: PIPERACILLIN-TAZOBACTAM 3.375 GM in SODIUM CHLORIDE 0.9% 100 ML IVPB SCH (08:33)
[2019-12-12] MEDS: APIXABAN 5 MG TAB PO SCH (08:33)
[2019-12-12] MEDS: SPIRONOLACTONE 25 MG TAB PO SCH (08:33)
[2019-12-12] MEDS: ACETAMINOPHEN TAB 325 MG TAB PO PRN (08:33)
[2019-12-12] MEDS: FLECAINIDE 50 MG TAB PO SCH (08:33)
[2019-12-12] MEDS: VERAPAMIL SR 120 MG TABLET.ER PO SCH (08:34)
[2019-12-12] MEDS: INSULIN ASPART (NovoLOG) 100 UNIT/ML VIAL SQ SCH (08:34)
--- NOTE | 2019-12-12 10:46 | P.PN ---
Subjective This is Meghana Rider PA-C scribing on behalf of Dr. Tobin The patient was interviewed and examined by Dr. Tobin HPI/interval history Patient is a 74-year-old female with a history of paroxysmal atrial fibrillation, diabetes, history of PE who presented with abdominal pain and diarrhea and was admitted for treatment of possible diverticulitis with small bowel obstruction. Cardiology was consulted for treatment of atrial fibrillation with RVR. She apparently did not get her antiarrhythmic medication and she went into atrial fibrillation. She was started back on her flecainide and verapamil. She is currently in sinus rhythm. He has been restarted on her anticoagulation. She is feeling well and states she is ready to go home. EXAMINATION Patient is afebrile, pulse in the 80s, respirations 18, blood pressure 113/62, oxygen saturation 95% on room air Dr. Tobin examined the patient Patient is in no acute distress Heart is slightly irregular, likely PACs Lungs clear to auscultation bilaterally Mild lower extremity edema bilaterally REVIEW OF LABS, ECG WBC 5.7, hemoglobin 11.9, platelets 230, potassium 3.7, BUN 14, creatinine 1.09 Currently in sinus rhythm with PACs IMPRESSION / ASSESSMENT: Partial small bowel obstruction Paroxysmal atrial fibrillation, currently in sinus rhythm, anticoagulated with eliquis Diabetes CKD History of DVT/PE Hypothyroidism PLAN: Continue current cardiac medication regimen including antiarrhythmic therapy, rate controlled verapamil, and anticoagulation with eliquis Objective - Vital Signs Vital signs: Vital Signs Temp 97.7 F 12/12/19 04:00 Pulse 83 12/12/19 04:00 Resp 18 12/12/19 04:00 BP 113/62 12/12/19 04:00 Pulse Ox 95 12/12/19 04:00 Intake & Output 12/11/19 12/12/19 12/12/19 18:59 06:59 18:59 Intake Total 180 180 Balance 180 180 Weight 105.9 kg Intake: Intake, IV Titration 180 Amount Piperacillin-Tazobactam 3 100 .375 gm In Sodium Chloride 0.9% 100 ml @ 25 mls/hr IVPB Q8HR [facility] Rx# :[id number] Sodium Chloride 0.9% 1, 80 000 ml @ 75 mls/hr IV . [id number] [facility] Rx#:[id number] Oral 180 Other: Voiding Method Toilet # Voids 3 1 - Labs CBC & Chem 7: 12/12/19 03:38 12/11/19 03:06 Labs: Abnormal Lab Results - Last 24 Hours (Table) 12/11/19 Range/Units 16:25 POC Glucose (mg/dL) 112 H (75-99) mg/dL
--- NOTE | 2019-12-12 11:04 | P.PN ---
<VoAngela Anabella - Last Filed: 12/12/19 10:59> Subjective Progress Note Date: 12/12/19 CHIEF COMPLAINT: SBO HISTORY OF PRESENT ILLNESS: Patient examined this morning at the bedside. She denies abdominal pain. Tolerating diet without nausea or vomiting. Passing flatus. Reports BM yesterday. Vital signs stable. Afebrile. She is anxious to be discharged home today. PHYSICAL EXAM: VITAL SIGNS: Reviewed. GENERAL: Well-developed in no acute distress. HEENT: No sclera icterus. Extraocular movements grossly intact. Moist buccal mucosa. Head is atraumatic, normocephalic. ABDOMEN: Soft. Mid abdomen swelling-unchanged since previous examination. Nontender with palpation. NEUROLOGIC: Awake and alert. ASSESSMENT: 1. Abdominal pain 2. Small bowel obstruction PLAN: -Continue diet as tolerated -Patient may be discharged home today from a surgical standpoint. Follow up with Dr. Oconnell outpatient Nurse practitioner note has been reviewed by physician. Signing provider agrees with the documented findings, assessment, and plan of care. Objective - Vital Signs Vital signs: Vital Signs Temp 97.5 F L 12/12/19 08:00 Pulse 80 12/12/19 08:00 Resp 18 12/12/19 08:00 BP 107/61 12/12/19 08:00 Pulse Ox 98 12/12/19 08:00 Intake & Output 12/11/19 12/12/19 12/12/19 18:59 06:59 18:59 Intake Total 180 180 120 Balance 180 180 120 Weight 105.9 kg Intake: Intake, IV Titration 180 Amount Piperacillin-Tazobactam 3 100 .375 gm In Sodium Chloride 0.9% 100 ml @ 25 mls/hr IVPB Q8HR [facility] Rx# :[id number] Sodium Chloride 0.9% 1, 80 000 ml @ 75 mls/hr IV . [id number] [facility] Rx#:[id number] Oral 180 120 Other: Voiding Method Toilet # Voids 3 1 - Labs CBC & Chem 7: 12/12/19 03:38 12/11/19 03:06 Labs: Abnormal Lab Results - Last 24 Hours (Table) 12/11/19 Range/Units 16:25 POC Glucose (mg/dL) 112 H (75-99) mg/dL <Mike Oconnell - Last Filed: 12/12/19 16:24> Subjective As above. Patient doing better today. No pain. Tolerating diet. May discharg e. Follow-up as needed. Objective - Vital Signs Vital signs: Vital Signs Temp 98.1 F 12/12/19 11:24 Pulse 68 12/12/19 11:24 Resp 18 12/12/19 11:24 BP 116/75 12/12/19 11:24 Pulse Ox 98 12/12/19 11:24 Intake & Output 12/11/19 12/12/19 12/12/19 18:59 06:59 18:59 Intake Total 180 180 360 Balance 180 180 360 Weight 105.9 kg Intake: Intake, IV Titration 180 Amount Piperacillin-Tazobactam 3 100 .375 gm In Sodium Chloride 0.9% 100 ml @ 25 mls/hr IVPB Q8HR [facility] Rx# :[id number] Sodium Chloride 0.9% 1, 80 000 ml @ 75 mls/hr IV . [id number] [facility] Rx#:[id number] Oral 180 360 Other: Voiding Method Toilet # Voids 3 1 - Labs CBC & Chem 7: 12/12/19 03:38 12/11/19 03:06 Labs: Abnormal Lab Results - Last 24 Hours (Table) 12/11/19 Range/Units 16:25 POC Glucose (mg/dL) 112 H (75-99) mg/dL Assessment and Plan (1) SBO (small bowel obstruction) Status: Acute Code(s): K56.609 - UNSP INTESTNL OBST, UNSP TO PARTIAL VERSUS COMPLETE OBST SNOMED Code(s): 894049434
[2019-12-12 11:25] VITALS: BP 116/75; PULSE 68; TEMP 98.1
--- NOTE | 2019-12-12 11:26 | P.DS ---
Providers Date of admission: 12/08/19 13:50 Expected date of discharge: 12/12/19 Attending physician: Jessica Lynch MD Consults: 12/08/19 13:28 Consult Physician Routine Consulting Provider: Mike Oconnell Consult Reason/Comments: acute SBO, adhesions Do you want consulting provider notified?: Yes 12/09/19 17:45 Consult Physician Routine Consulting Provider: Marc Tobin Consult Reason/Comments: A fib with RVR Do you want consulting provider notified?: Yes Primary care physician: Cliff Torrez Hospital Course: Discharge Diagnosis: Partial small bowel obstruction Acute diverticulitis Atrial fibrillation, paroxysmal, currently in normal sinus rhythm with RVR previously during this hospital stay Diabetes mellitus type 2 Chronic kidney disease stage III with baseline creatinine of 1.3 Hospital Course: Patient is a 74-year-old female with atrial fibrillation on chronic anticoagulation therapy and antiarrhythmic therapy, diabetes mellitus type 2 on oral medications, prior pulmonary embolism and DVTs who presented to the hospital with complaints of abdominal pain. In the ER she underwent an extensive evaluation. She was found be tachycardic on arrival with a heart rate of 103. Initial laboratory analysis showed a creatinine of 1.14, urinalysis is unremarkable, stool occult blood negative, and crust virus PCR not detected. She underwent a CT abdomen and pelvis which showed a mid to distal acute small bowel obstruction likely from adhesions centered in the left lower quadrant. A nasogastric tube was placed and the patient was admitted for small bowel obstruction and surgery was consulted. On the morning of 12/[address] and felt that there was possible component of some diverticulitis. Patient's stated that she had been treated for diverticulitis and had taken several days of antibiotics prior to presentation. She was subsequently started on a clear liquid diet as well as antibiotics by surgery. Her by mouth medications were restarted with the exception of eliquis incase surgery was needed. She developed A fib with RVR on the evening of 12/08 requiring transfer to [facility] an initiation of a cardizem gtt. Cardiology was consulted. The morning of 12/09 her heart rate was much improved. She was able to come off the Cardizem drip. Her abdominal pain continued to improve. She converted to normal sinus rhythm on the evening of 12/09. Her diet was slowly advanced on her abdominal pain remained resolved. She was determined stable for discharge home. She will complete a course of Augmentin to finish up treatment for her possible diverticulitis. She will follow-up with Dr. Torrez in 2-3 days. Patient seen and examined at bedside. Abdominal pain is better, tolerating diet, wants to go home, passing gas and had a bowel movement yesterday Vital signs reviewed and stable. General: non toxic, no distress, appears at stated age Derm: Chronic venous stasis changes warm, dry Head: atraumatic, normocephalic, symmetric Eyes: EOMI, no lid lag, anicteric sclera Mouth: no lip lesion, mucus membranes moist Cardiovascular: S1S2 reg, no murmur, positive posterior tibial pulse bilateral, Lungs: CTA bilateral, no rhonchi, no rales , no accessory muscle use Abdominal: soft, nontender to palpation, no guarding, no appreciable org anomegaly Ext: no gross muscle atrophy, 2+ edema bilateral lower extremities, no contractures Neuro: CN II-XI grossly intact, no focal neuro deficits Psych: Alert, oriented to self and situation, struggles with some recall, normal affect A total of 35 minutes of time were spent preparing this complex discharge summary . Patient Condition at Discharge: Stable Plan - Discharge Summary New Discharge Prescriptions: No Action Spironolactone [Aldactone] 100 mg PO BID Apixaban [Eliquis] 5 mg PO BID amLODIPine [Norvasc] 5 mg PO DAILY Flecainide Acetate 50 mg PO BID metFORMIN HCL ER [Glucophage Xr] 500 mg PO DAILY Verapamil HCl [Verapamil ER] 120 mg PO DAILY Discharge Medication List Spironolactone [Aldactone] 100 mg PO BID 12/20/13 [History] Apixaban [Eliquis] 5 mg PO BID 05/08/15 [History] Flecainide Acetate 50 mg PO BID 12/08/19 [History] Verapamil HCl [Verapamil ER] 120 mg PO DAILY 12/08/19 [History] amLODIPine [Norvasc] 5 mg PO DAILY 12/08/19 [History] metFORMIN HCL ER [Glucophage Xr] 500 mg PO DAILY 12/08/19 [History] Follow up Appointment(s)/Referral(s): Mike Oconnell MD [Medical Doctor] - 1 Week Cliff Torrez MD [Primary Care Provider] - 1-2 days
[2019-12-12 12:09] LABS: Glucose,Whole Blood 88 mg/dL (75-99)
== END 2019-12-12 13:08 | disposition home or self-care (01) | DRG 389 ==
LOC: EC 10:56 → 4SSUR 13:50 → 3SCARD 12-09 18:34
PROVIDERS: ADMIT Internal Medicine; ATTEND Internal Medicine
DX: K56.51 Intestinal adhesions [bands], with partial obstruction (principal); K57.92 Diverticulitis of intestine, part unspecified, without perforation or abscess without bleeding; E03.9 Hypothyroidism, unspecified; E11.22 Type 2 diabetes mellitus with diabetic chronic kidney disease; E86.0 Dehydration; I48.0 Paroxysmal atrial fibrillation; M19.90 Unspecified osteoarthritis, unspecified site; N18.3 Chronic kidney disease, stage 3 (moderate); Z79.01 Long term (current) use of anticoagulants; Z79.84 Long term (current) use of oral hypoglycemic drugs; Z79.899 Other long term (current) drug therapy; Z80.49 Family history of malignant neoplasm of other genital organs; Z82.49 Family history of ischemic heart disease and other diseases of the circulatory system; Z86.711 Personal history of pulmonary embolism; Z86.718 Personal history of other venous thrombosis and embolism; Z87.442 Personal history of urinary calculi; Z90.711 Acquired absence of uterus with remaining cervical stump; Z20.828 Contact with and (suspected) exposure to other viral communicable diseases; Z88.1 Allergy status to other antibiotic agents; Z88.2 Allergy status to sulfonamides; I95.9 Hypotension, unspecified; E11.649 Type 2 diabetes mellitus with hypoglycemia without coma
CPT/HCPCS: 36415; 74019; 74177; 80048; 80053; 81001; 82272; 83605; 83735; 84100; 85025; 85610; 85730; 86850; 86900; 86901; 87635; 93005; 96361; 96374; 96375; 99285

== ENCOUNTER → 2020-06-07 | Outpatient (CLI) | payer MEDICARE ==
[2020-06-07 12:54] LABS: HCT 39.1 % (34.0-46.0); HGB 12.7 gm/dL (11.4-16.0); Hypochromasia Slight; MCH 31.3 pg (25.0-35.0); MCHC 32.4 g/dL (31.0-37.0); MCV 96.7 fL (80.0-100.0); Platelet Count 214 k/uL (150-450); RBC 4.04 m/uL (3.80-5.40); RDW 13.9 % (11.5-15.5); WBC 4.6 k/uL (3.8-10.6)
[2020-06-07 21:18] LABS: Hemoglobin A1C 4.9 % (4.0-6.0)
[2020-06-07 22:56] LABS: African American GFR (CKD) 57.3 (60.0-200.0); Albumin 3.4 g/dL (3.80-4.90); Albumin/Globulin Ratio 1.42 (1.60-3.17); Anion Gap 11.9 mmol/L (4.00-12.00); BUN/Creat Ratio 11.82 Ratio (12.00-20.00); Carbon Dioxide 24.1 mmol/L (21.6-31.8); Chol/HDL Ratio 3.45; Globulin 2.4 g/dL (1.6-3.3); LDL Cholesterol,Calculated 99.6 mg/dL (0.0-131.0); Non-African American GFR(CKD) 49.4 (60.0-200.0); Potassium 4.1 mmol/L (3.5-5.5); Total Bilirubin 0.4 mg/dL (0.2-1.2); Total Protein 5.8 g/dL (6.2-8.2); VLDL Calculation 20.4 mg/dL (5.00-40.00)
== END | disposition home or self-care (01) ==
LOC: LABWHC1 11:18
PROVIDERS: ATTEND Internal Medicine
DX: E11.9 Type 2 diabetes mellitus without complications (principal); I48.20 Chronic atrial fibrillation, unspecified; E78.5 Hyperlipidemia, unspecified
CPT/HCPCS: 36415; 80053; 80061; 83036; 84443; 85027